=== PATIENT | male | born 1960 | race American Indian/Alaskan Native ===

== ENCOUNTER 2020-09-04 21:47 | Emergency (ER) | payer MEDICAID ==
[2020-09-04] MEDS ORDERED: Clindamycin HCl 150 MG Cap PO ONE (21:48)
[2020-09-04] MEDS ORDERED: Acetaminophen/HYDROcodone 325-10 MG Tab PO ONE (21:48)
[2020-09-04 23:24] LABS: ANION GAP 16.6 mEq/L (7-13); CHLORIDE,CL 90 mmol/L (98-107); SODIUM,NA 126 mmol/L (136-145)
--- NOTE | 2020-09-05 00:05 | EDM.PDOC ---
ED HPI GENERAL MEDICAL PROBLEM - General Chief Complaint: Skin Complaint Stated Complaint: RIGHT LEG INFLAMMED KNEE DOWN SWOLLEN Time Seen by Provider: 09/05/20 00:01 Source of Information: Reports: Patient History Limitations: Reports: No Limitations - History of Present Illness INITIAL COMMENTS - FREE TEXT/NARRATIVE: ONSET RIGHT LEG SWELLING AND REDNESS SINCE YESTERDAY. Right Lower Leg Pain Score (Numeric/FACES): 7 - Related Data Allergies Allergy/AdvReac Type Severity Reaction Status Date / Time tomato Allergy Airway Verified 09/04/20 22:51 Tightness Home Meds: Home Meds Nitroglycerin [Nitrostat] 1 tab .ROUTE ASDIRECTED PRN 09/28/13 [History] Aspirin [Aspirin EC] 81 mg PO DAILY 10/09/14 [History] Clopidogrel Bisulfate [Clopidogrel] 75 mg PO DAILY 10/09/14 [History] Pantoprazole [ProTONIX] 40 mg PO DAILY 10/09/14 [History] Simvastatin [Zocor] 40 mg PO DAILY 10/09/14 [History] amLODIPine Besylate [Amlodipine Besylate] 10 mg PO DAILY 10/09/14 [History] metFORMIN [Glucophage] 500 mg PO BID 10/09/14 [History] Losartan Potassium 50 mg PO BID 01/07/16 [History] Metoprolol Succinate 50 mg PO DAILY 01/07/16 [History] Past Medical History Cardiovascular History: Reports: High Cholesterol, Hypertension, [place] Gastrointestinal History: Reports: GERD Genitourinary History: Reports: Other (See Below) Other Genitourinary History: prostate removal Endocrine/Metabolic History: Reports: Diabetes, Type II Oncologic (Cancer) History: Reports: Prostate - Infectious Disease History Infectious Disease History: Reports: MRSA - Past Surgical History Cardiovascular Surgical History: Reports: Coronary Artery Stent Male Surgical History: Reports: Prostatectomy Oncologic Surgical History: Reports: Other (See Below) Other Oncologic Surgeries/Procedures: prostate removal Social & Family History - Family History Family Medical History: No Pertinent Family History - Tobacco Use Tobacco Use Status *Q: Never Tobacco User Second Hand Smoke Exposure: No - Caffeine Use Caffeine Use: Reports: Coffee - Recreational Drug Use Recreational Drug Use: No - Living Situation & Occupation Living situation: Reports: Occupation: Employed ED ROS GENERAL - Review of Systems Review Of Systems: Comprehensive ROS is negative, except as noted in HPI. ED EXAM, SKIN/RASH Exam: See Below Exam Limited By: No Limitations General Appearance: Alert, WD/WN, No Apparent Distress Ears: Hearing Grossly Normal Throat/Mouth: Normal Voice, No Airway Compromise Head: Atraumatic Neck: Non-Tender, Full Range of Motion Respiratory/Chest: No Respiratory Distress Cardiovascular: Regular Rate, Rhythm GI/Abdominal: Soft, Non-Tender (Male) Exam: Deferred Rectal (Males) Exam: Deferred Neurological: Other (right leg cellulitis, [place] wnl,) Psychiatric: Flat Affect Skin: Warm, Dry, Normal Color Location, Skin: Lower Extremity, Right Characteristics: Erythematous Associated features: Tenderness, Swelling, Inflammation Lymphatic: No Adenopathy Course - Vital Signs Last Recorded V/S: Last Vital Signs Temp 36.4 C 09/05/20 00:57 Pulse 88 09/05/20 00:57 Resp 19 09/05/20 00:57 BP 145/89 H 09/05/20 00:57 Pulse Ox 98 09/04/20 22:17 - Orders/Labs/Meds Orders: Active Orders 24 hr Category Date Time Status CULTURE BLOOD [BC] Stat Lab 09/04/20 22:57 Received Labs: Laboratory Tests 09/04/20 09/04/20 09/04/20 Range/Units 22:57 22:57 22:57 WBC 15.5 H (5.0-10.0) 10^3/uL RBC 4.58 L (4.6-6.2) 10^6/uL Hgb 13.9 L (14.0-18.0) g/dL Hct 39.7 L (40.0-54.0) % MCV 86.7 (80-100) fL MCH 30.3 (27.0-34.0) pg MCHC 35.0 (33.0-35.0) g/dL Plt Count 124 L (150-450) 10^3/uL Neut % (Auto) 84.9 H (42.2-75.2) % Lymph % (Auto) 7.3 L (20.5-50.1) % [place] % (Auto) 7.5 (2-8) % Eos % (Auto) 0.1 L (1.0-3.0) % Baso % (Auto) 0.2 (0.0-1.0) % Sodium 126 L (136-145) mmol/L Potassium 3.6 (3.5-5.1) mmol/L Chloride 90 L (98-107) mmol/L Carbon Dioxide 23 (21-32) mmol/L Anion Gap 16.6 H (7-13) mEq/L BUN 15 (7-18) mg/dL Creatinine 1.18 (0.70-1.30) mg/dL Est Cr Clr Drug Dosing 74.29 mL/min Estimated GFR (MDRD) > 60 BUN/Creatinine Ratio 12.7 (No establ ref range) Glucose 216 H (74-99) mg/dL Lactic Acid 2.1 H* (0.4-2.0) mmol/L Calcium 8.6 (8.5-10.1) mg/dL Total Bilirubin 1.0 (0.2-1.0) mg/dL AST 47 H (15-37) U/L ALT 42 (16-63) U/L Alkaline Phosphatase 49 (46-116) U/L Total Protein 7.8 (6.4-8.2) g/dL Albumin 2.8 L (3.4-5.0) g/dL Globulin 5.0 Albumin/Globulin Ratio 0.56 Meds: Medications Discontinued Medications Generic Name Dose Route Start Last Admin Trade Name Freq PRN Reason Stop Dose Admin Hydrocodone Bitart/Acetaminophen Confirm 09/05/20 00:16 09/05/20 00:44 [place] 325-10 Mg Administered 09/05/20 00:17 Not Given Dose 1 tab .ROUTE .STK-MED ONE Clindamycin HCl Confirm 09/05/20 00:16 09/05/20 00:43 Cleocin Administered 09/05/20 00:17 Not Given Dose 1,200 mg .ROUTE .STK-MED ONE Vancomycin HCl 1.5 gm/ Premix 300 mls @ 200 mls/hr 09/04/20 22:56 IV 09/05/20 00:25 ONETIME ONE Vancomycin HCl 1,500 mg/ 500 mls @ 333.333 mls/hr 09/04/20 23:07 09/04/20 23:23 Sodium Chloride IV 09/05/20 00:36 333.333 mls/hr ONETIME ONE Administration - Re-Assessments/Exams Free Text/Narrative Re-Assessment/Exam: 09/05/20 00:03 results discussed with pt. Departure - Departure Time of Disposition: 01:05 Disposition: Home, Self-Care 01 Condition: Fair Clinical Impression: Cellulitis Qualifiers: Site of cellulitis: extremity Site of cellulitis of extremity: lower extremity Laterality: right Qualified Code(s): L03.115 - Cellulitis of right lower limb - Discharge Information Instructions: Cellulitis, Adult, [id number] Forms: ED Department Discharge Additional Instructions: 1) elevate leg as much as possible 2) follow up at clinic 3) recheck if there is any change or concern rx given; clindamycin 300mg qid x 40 Sepsis Event Note (ED) - Evaluation Sepsis Screening Result: No Definite Risk - Focused Exam Vital Signs: Vital Signs Temp Pulse Resp BP Pulse Ox 09/05/20 00:57 36.4 C 88 19 145/89 H 09/04/20 22:17 35.8 C L 95 21 H 151/91 H 98 - My Orders Last 24 Hours: My Active Orders 09/04/20 22:57 CULTURE BLOOD [BC] Stat - Assessment/Plan Last 24 Hours: My Active Orders 09/04/20 22:57 CULTURE BLOOD [BC] Stat
[2020-09-05] MEDS: Clindamycin HCl 150 MG Cap ONE (00:43)
[2020-09-05] MEDS: Acetaminophen/HYDROcodone 325-10 MG Tab ONE (00:44)
[2020-09-05 00:58] VITALS: BP 145/89; PULSE 88
== END 2020-09-05 01:05 | disposition home or self-care (01) ==
LOC: DL.ED 21:47
DX: L03.115 Cellulitis of right lower limb (principal); I10 Essential (primary) hypertension; E78.00 Pure hypercholesterolemia, unspecified; I25.2 Old myocardial infarction; K21.9 Gastro-esophageal reflux disease without esophagitis; E11.9 Type 2 diabetes mellitus without complications; Z91.018 Allergy to other foods; Z79.82 Long term (current) use of aspirin; Z79.899 Other long term (current) drug therapy; Z79.02 Long term (current) use of antithrombotics/antiplatelets
CPT/HCPCS: 36415; 80053; 83605; 85025; 87040; 96365; 96366; 99283; A9270; J3370; J7040

== ENCOUNTER 2021-08-11 18:24 | Inpatient (IN) | payer MEDICAID ==
[2021-08-11 21:09] LABS: BASE EXCESS VENOUS -0.7 mmol/l ((-2)-(+3)); BICARBONATE,VENOUS 24 mmol/l (19-25); O2 DELIVERY DEVICE NASAL CANNULA; O2 SATURATION VENOUS 73.8 % (60-80); PCO2 VENOUS 39 mmHg (41-51); PO2 VENOUS 42 mmHg (35-42)
[2021-08-11 21:12] LABS: O2 FLOW RATE 8
--- NOTE | 2021-08-11 21:13 | EDM.PDOC ---
ED HPI GENERAL MEDICAL PROBLEM - General Chief Complaint: General Stated Complaint: NOT FEELING WELL Time Seen by Provider: 08/11/21 20:30 Source of Information: Reports: Patient, RN History Limitations: Reports: No Limitations - History of Present Illness INITIAL COMMENTS - FREE TEXT/NARRATIVE: ED with c/o not feeling well, muscle aches x 1 week. SOB with coughing. Denies SOB at rest, denied fever , no nausea or vomiting. Appetite poor. No change in taste or smell, denied smoking hx. Reported to RN no vaccine, , reported ot provider he was vaccinated but cant remember type of vaccine. Generalized Pain Score (Numeric/FACES): 10 - Related Data Allergies Allergy/AdvReac Type Severity Reaction Status Date / Time No Known Allergies Allergy Verified 08/11/21 20:27 Home Meds: Home Meds Nitroglycerin [Nitrostat] 1 tab .ROUTE ASDIRECTED PRN 09/28/13 [History] Aspirin [Aspirin EC] 81 mg PO DAILY 10/09/14 [History] Clopidogrel Bisulfate [Clopidogrel] 75 mg PO DAILY 10/09/14 [History] Pantoprazole [ProTONIX] 40 mg PO DAILY 10/09/14 [History] Simvastatin [Zocor] 40 mg PO DAILY 10/09/14 [History] amLODIPine Besylate [Amlodipine Besylate] 10 mg PO DAILY 10/09/14 [History] metFORMIN [Glucophage] 500 mg PO BID 10/09/14 [History] Losartan Potassium 50 mg PO BID 01/07/16 [History] Metoprolol Succinate 50 mg PO DAILY 01/07/16 [History] Past Medical History Cardiovascular History: Reports: High Cholesterol, Hypertension, [place] Gastrointestinal History: Reports: GERD Genitourinary History: Reports: Other (See Below) Other Genitourinary History: prostate removal Endocrine/Metabolic History: Reports: Diabetes, Type II Oncologic (Cancer) History: Reports: Prostate - Infectious Disease History Infectious Disease History: Reports: MRSA - Past Surgical History Cardiovascular Surgical History: Reports: Coronary Artery Stent Male Surgical History: Reports: Prostatectomy Oncologic Surgical History: Reports: Other (See Below) Other Oncologic Surgeries/Procedures: prostate removal Social & Family History - Family History Family Medical History: No Pertinent Family History - Tobacco Use Tobacco Use Status *Q: Never Tobacco User Second Hand Smoke Exposure: No - Caffeine Use Caffeine Use: Reports: Coffee - Recreational Drug Use Recreational Drug Use: No - Living Situation & Occupation Living situation: Reports: Occupation: Employed ED ROS GENERAL - Review of Systems Review Of Systems: Comprehensive ROS is negative, except as noted in HPI. ED EXAM, GENERAL - Physical Exam Exam: See Below Exam Limited By: No Limitations General Appearance: Alert, Mild Distress, Obese Eye Exam: Bilateral Eye: EOMI, PERRL Ears: Normal External Exam Nose: Normal Inspection Throat/Mouth: Normal Inspection Head: Atraumatic, Normocephalic Neck: Normal Inspection Respiratory/Chest: No Respiratory Distress, Lungs Clear, Decreased Breath Sounds Cardiovascular: Normal Peripheral Pulses, Regular Rate, Rhythm, Other (initial EKG trigemeny, Sinus rare ectopy with oxygen). No: No Edema (2+) GI/Abdominal: Normal Bowel Sounds, Soft Extremities: No: Pedal Edema (1-2plus) Neurological: Alert, Oriented, Normal Cognition, Normal Gait Psychiatric: Normal Affect, Flat Affect Skin Exam: Warm, Dry, Intact, Normal Color #1 Interpretation Rhythm: Other (sinus) [place]: Normal P-Wave: Present QRS: Normal Comparison: Change From Previous EKG EKG Interpretation Comments: sinus with ventricular trigeminy Course - Vital Signs Last Recorded V/S: Last Vital Signs Temp 98.8 F 08/12/21 04:00 Pulse 62 08/12/21 04:00 Resp 25 H 08/12/21 04:00 BP 116/72 08/12/21 04:00 Pulse Ox 90 L 08/12/21 04:00 - Orders/Labs/Meds Orders: Active Orders 24 hr Category Date Time Status Admission Diagnosis [ADT] Stat ADT 08/12/21 00:24 Ordered Admission Status [Patient Status] [ADT] Routine ADT 08/12/21 00:24 Active CULTURE BLOOD [BC] Stat Lab 08/11/21 20:45 Received CULTURE BLOOD [BC] Stat Lab 08/11/21 20:50 Received Blood Culture x2 Reflex Set [OM.PC] Stat Oth 08/11/21 20:29 Ordered Medication Orders Acetaminophen (Acetaminophen 325 Mg Tab) 650 mg PO Q4H PRN PRN Reason: Pain (Mild 1-3)/fever Amlodipine Besylate (Amlodipine 5 Mg Tab) 10 mg PO DAILY [facility] Aspirin (Aspirin 81 Mg Tab.Ec) 81 mg PO DAILY [facility] Clopidogrel Bisulfate (Clopidogrel 75 Mg Tab) 75 mg PO DAILY [facility] Dexamethasone (Dexamethasone 6 Mg Tablet) 6 mg PO DAILY [facility] Stop: 08/21/21 09:01 Dextrose/Water (50% Dextrose In Water 50 Ml Syringe) 50 ml IVPUSH Q15M PRN PRN Reason: Hypoglycemia Enoxaparin Sodium (Enoxaparin 40 Mg/0.4 Ml Syringe) 40 mg SUBCUT DAILY [facility] Glucagon (Glucagon,Human Recombinant 1 Mg Vial) 1 mg IM Q15M PRN PRN Reason: Hypoglycemia Remdesivir 100 mg/ Sodium (Chloride) 100 mls @ 100 mls/hr IV Q24H [facility] Stop: 08/16/21 01:59 Piperacillin Sod/Tazobactam (Sod 4.5 gm/ Sodium Chloride) 100 mls @ 200 mls/hr IV Q6HR [facility] Last Admin: 08/12/21 05:11 Dose: 200 mls/hr Documented by: HALEIGH Insulin Human Lispro (Insulin Lispro 100 Units/Ml 3 Ml Vial) 0 unit SUBCUT WITHMEALSANDBED [facility]; Protocol Losartan Potassium (Losartan 25 Mg Tab) 50 mg PO BID [facility] Metoprolol Succinate (Metoprolol Succinate 25 Mg Tab.Er) 50 mg PO DAILY [facility] Ondansetron HCl (Ondansetron 4 Mg/2 Ml Sdv) 4 mg IVPUSH Q4H PRN PRN Reason: Nausea/Vomiting Pantoprazole Sodium (Pantoprazole 40 Mg Tab.Cr) 40 mg PO DAILY [facility] Simvastatin (Simvastatin 40 Mg Tab) 40 mg PO DAILY [facility] Labs: Laboratory Tests 08/11/21 08/11/21 08/11/21 Range/Units 20:32 20:45 20:45 WBC 5.4 (5.0-10.0) 10^3/uL RBC 5.15 (4.6-6.2) 10^6/uL Hgb 15.2 (14.0-18.0) g/dL Hct 45.0 (40.0-54.0) % MCV 87.4 (80-100) fL MCH 29.5 (27.0-34.0) pg MCHC 33.8 (33.0-35.0) g/dL Plt Count 213 D (150-450) 10^3/uL Neut % (Auto) 81.8 H (42.2-75.2) % Lymph % (Auto) 10.3 L (20.5-50.1) % [place] % (Auto) 7.9 (2-8) % Eos % (Auto) 0.0 L (1.0-3.0) % Baso % (Auto) 0.0 (0.0-1.0) % D-Dimer, Quantitative 1120 H (0-400) ng/mL VBG pH (7.31-7.41) VBG pCO2 (41-51) mmHg VBG pO2 (35-42) mmHg VBG HCO3 (19-25) mmol/l VBG O2 Saturation (60-80) % VBG Base Excess ((-2)-(+3)) mmol/l O2 Delivery Device Oxygen Flow Rate Sodium (136-145) mmol/L Potassium (3.5-5.1) mmol/L Chloride (98-107) mmol/L Carbon Dioxide (21-32) mmol/L Anion Gap (7-13) mEq/L BUN (7-18) mg/dL Creatinine (0.70-1.30) mg/dL Est Cr Clr Drug Dosing mL/min Estimated GFR (MDRD) BUN/Creatinine Ratio (No establ ref range) Glucose (70-99) mg/dL Lactic Acid (0.4-2.0) mmol/L Calcium (8.5-10.1) mg/dL Magnesium (1.8-2.4) mg/dL Total Bilirubin (0.2-1.0) mg/dL AST (15-37) U/L ALT (16-63) U/L Alkaline Phosphatase (46-116) U/L Troponin I High Sens (<=76) pg/mL C-Reactive Protein (0.0-0.9) mg/dL B-Natriuretic Peptide (0-100) pg/ml Total Protein (6.4-8.2) g/dL Albumin (3.4-5.0) g/dL Globulin Albumin/Globulin Ratio Influenza Type A RNA Negative (NEGATIVE) Influenza Type B RNA Negative (NEGATIVE) SARS-CoV-2 RNA (JERE) Positive H (NEGATIVE) 08/11/21 08/11/21 08/11/21 Range/Units 20:45 20:45 20:50 WBC (5.0-10.0) 10^3/uL RBC (4.6-6.2) 10^6/uL Hgb (14.0-18.0) g/dL Hct (40.0-54.0) % MCV (80-100) fL MCH (27.0-34.0) pg MCHC (33.0-35.0) g/dL Plt Count (150-450) 10^3/uL Neut % (Auto) (42.2-75.2) % Lymph % (Auto) (20.5-50.1) % [place] % (Auto) (2-8) % Eos % (Auto) (1.0-3.0) % Baso % (Auto) (0.0-1.0) % D-Dimer, Quantitative (0-400) ng/mL VBG pH (7.31-7.41) VBG pCO2 (41-51) mmHg VBG pO2 (35-42) mmHg VBG HCO3 (19-25) mmol/l VBG O2 Saturation (60-80) % VBG Base Excess ((-2)-(+3)) mmol/l O2 Delivery Device Oxygen Flow Rate Sodium 130 L (136-145) mmol/L Potassium 4.8 (3.5-5.1) mmol/L Chloride 93 L (98-107) mmol/L Carbon Dioxide 26 (21-32) mmol/L Anion Gap 15.8 H (7-13) mEq/L BUN 21 H (7-18) mg/dL Creatinine 1.27 (0.70-1.30) mg/dL Est Cr Clr Drug Dosing 66.19 mL/min Estimated GFR (MDRD) 57 BUN/Creatinine Ratio 16.5 (No establ ref range) Glucose 204 H (70-99) mg/dL Lactic Acid 1.8 (0.4-2.0) mmol/L Calcium 9.1 (8.5-10.1) mg/dL Magnesium 2.1 (1.8-2.4) mg/dL Total Bilirubin 0.6 (0.2-1.0) mg/dL AST 114 H (15-37) U/L ALT 132 H (16-63) U/L Alkaline Phosphatase 46 (46-116) U/L Troponin I High Sens 16 (<=76) pg/mL C-Reactive Protein 16.3 H (0.0-0.9) mg/dL B-Natriuretic Peptide 91 (0-100) pg/ml Total Protein 8.3 H (6.4-8.2) g/dL Albumin 2.8 L (3.4-5.0) g/dL Globulin 5.5 Albumin/Globulin Ratio 0.51 Influenza Type A RNA (NEGATIVE) Influenza Type B RNA (NEGATIVE) SARS-CoV-2 RNA (JERE) (NEGATIVE) 08/11/21 Range/Units 21:05 WBC (5.0-10.0) 10^3/uL RBC (4.6-6.2) 10^6/uL Hgb (14.0-18.0) g/dL Hct (40.0-54.0) % MCV (80-100) fL MCH (27.0-34.0) pg MCHC (33.0-35.0) g/dL Plt Count (150-450) 10^3/uL Neut % (Auto) (42.2-75.2) % Lymph % (Auto) (20.5-50.1) % [place] % (Auto) (2-8) % Eos % (Auto) (1.0-3.0) % Baso % (Auto) (0.0-1.0) % D-Dimer, Quantitative (0-400) ng/mL VBG pH 7.40 (7.31-7.41) VBG pCO2 39 L (41-51) mmHg VBG pO2 42 (35-42) mmHg VBG HCO3 24 (19-25) mmol/l VBG O2 Saturation 73.8 (60-80) % VBG Base Excess -0.7 ((-2)-(+3)) mmol/l O2 Delivery Device Nasal cannula Oxygen Flow Rate 8 Sodium (136-145) mmol/L Potassium (3.5-5.1) mmol/L Chloride (98-107) mmol/L Carbon Dioxide (21-32) mmol/L Anion Gap (7-13) mEq/L BUN (7-18) mg/dL Creatinine (0.70-1.30) mg/dL Est Cr Clr Drug Dosing mL/min Estimated GFR (MDRD) BUN/Creatinine Ratio (No establ ref range) Glucose (70-99) mg/dL Lactic Acid (0.4-2.0) mmol/L Calcium (8.5-10.1) mg/dL Magnesium (1.8-2.4) mg/dL Total Bilirubin (0.2-1.0) mg/dL AST (15-37) U/L ALT (16-63) U/L Alkaline Phosphatase (46-116) U/L Troponin I High Sens (<=76) pg/mL C-Reactive Protein (0.0-0.9) mg/dL B-Natriuretic Peptide (0-100) pg/ml Total Protein (6.4-8.2) g/dL Albumin (3.4-5.0) g/dL Globulin Albumin/Globulin Ratio Influenza Type A RNA (NEGATIVE) Influenza Type B RNA (NEGATIVE) SARS-CoV-2 RNA (JERE) (NEGATIVE) Meds: Medications Generic Name Dose Route Start Last Admin Trade Name Freq PRN Reason Stop Dose Admin Acetaminophen 650 mg 08/12/21 00:35 Acetaminophen 325 Mg Tab PO Q4H PRN Pain (Mild 1-3)/fever Amlodipine Besylate 10 mg 08/12/21 09:00 Amlodipine 5 Mg Tab PO DAILY [facility] Aspirin 81 mg 08/12/21 09:00 Aspirin 81 Mg Tab.Ec PO DAILY [facility] Clopidogrel Bisulfate 75 mg 08/12/21 09:00 Clopidogrel 75 Mg Tab PO DAILY [facility] Dexamethasone 6 mg 08/12/21 09:00 Dexamethasone 6 Mg Tablet PO 08/21/21 09:01 DAILY [facility] Dextrose/Water 50 ml 08/12/21 00:40 50% Dextrose In Water 50 Ml Syringe IVPUSH Q15M PRN Hypoglycemia Enoxaparin Sodium 40 mg 08/12/21 09:00 Enoxaparin 40 Mg/0.4 Ml Syringe SUBCUT DAILY [facility] Glucagon 1 mg 08/12/21 00:40 Glucagon,Human Recombinant 1 Mg Vial IM Q15M PRN Hypoglycemia Remdesivir 100 mg/ Sodium 100 mls @ 100 mls/hr 08/13/21 01:00 Chloride IV 08/16/21 01:59 Q24H [facility] Piperacillin Sod/Tazobactam 100 mls @ 200 mls/hr 08/12/21 06:00 08/12/21 05:11 Sod 4.5 gm/ Sodium Chloride IV 200 mls/hr Q6HR [facility] Administration Insulin Human Lispro 0 unit 08/12/21 08:00 Insulin Lispro 100 Units/Ml 3 Ml Vial SUBCUT WITHMEALSANDBED [facility] Protocol Losartan Potassium 50 mg 08/12/21 09:00 Losartan 25 Mg Tab PO BID [facility] Metoprolol Succinate 50 mg 08/12/21 09:00 Metoprolol Succinate 25 Mg Tab.Er PO DAILY [facility] Ondansetron HCl 4 mg 08/12/21 00:35 Ondansetron 4 Mg/2 Ml Sdv IVPUSH Q4H PRN Nausea/Vomiting Pantoprazole Sodium 40 mg 08/12/21 09:00 Pantoprazole 40 Mg Tab.Cr PO DAILY [facility] Simvastatin 40 mg 08/12/21 09:00 Simvastatin 40 Mg Tab PO DAILY [facility] Discontinued Medications Generic Name Dose Route Start Last Admin Trade Name Freq PRN Reason Stop Dose Admin Dexamethasone 6 mg 08/11/21 21:33 08/11/21 21:41 Dexamethasone 4 Mg/Ml Sdv IVPUSH 08/11/21 21:34 6 mg ONETIME ONE Administration Azithromycin 500 mg/ Sodium 250 mls @ 250 mls/hr 08/11/21 23:21 08/12/21 00:17 Chloride IV 08/12/21 00:20 250 mls/hr ONETIME ONE Administration Remdesivir 200 mg/ Sodium 250 mls @ 250 mls/hr 08/12/21 00:38 08/12/21 02:03 Chloride IV 08/12/21 01:37 250 mls/hr ONETIME ONE Administration Iopamidol 100 ml 08/11/21 21:57 08/11/21 22:38 Iopamidol 755 Mg/Ml 100 Ml Bottle IVPUSH 08/11/21 21:58 94 ml ONETIME ONE Administration - Re-Assessments/Exams Free Text/Narrative Re-Assessment/Exam: 08/12/21 00:11 NAMRATA Ba , accepting patient for admission. Departure - Departure Time of Disposition: 00:10 Disposition: Admitted As Inpatient 65 Condition: Good Clinical Impression: Hypoxemia, Pneumonia due to COVID-19 virus, Hyperglycemia - Discharge Information *PRESCRIPTION DRUG MONITORING PROGRAM REVIEWED*: No *COPY OF PRESCRIPTION DRUG MONITORING REPORT IN PATIENT OSVALDO: No Sepsis Event Note (ED) - Focused Exam Vital Signs: Vital Signs Temp Pulse Resp BP Pulse Ox 08/11/21 20:16 99.1 F 83 20 135/60 84 L - My Orders Last 24 Hours: My Active Orders 08/11/21 20:29 Blood Culture x2 Reflex Set [OM.PC] Stat 08/11/21 20:45 CULTURE BLOOD [BC] Stat 08/11/21 20:50 CULTURE BLOOD [BC] Stat 08/12/21 00:24 Admission Diagnosis [ADT] Stat Admission Status [Patient Status] [ADT] Routine - Assessment/Plan Last 24 Hours: My Active Orders 08/11/21 20:29 Blood Culture x2 Reflex Set [OM.PC] Stat 08/11/21 20:45 CULTURE BLOOD [BC] Stat 08/11/21 20:50 CULTURE BLOOD [BC] Stat 08/12/21 00:24 Admission Diagnosis [ADT] Stat Admission Status [Patient Status] [ADT] Routine
[2021-08-11 21:25] LABS: CORONAVIRUS COVID-19 NAA POSITIVE (NEGATIVE)
[2021-08-11 21:32] LABS: ANION GAP 15.8 mEq/L (7-13)
[2021-08-11] MEDS ORDERED: Dexamethasone 4 MG/ML SDV IVPUSH ONE (21:33)
[2021-08-11] MEDS ORDERED: Iopamidol 755 Mg/ML 100 ML Bottle IVPUSH ONE (21:57)
--- NOTE | 2021-08-11 22:09 | CR ---
PROCEDURE INFORMATION: Exam: XR Chest Exam date and time: 08/11/2021 9:19 PM Age: 61 years old Clinical indication: Shortness of breath; Additional info: Hypoxia TECHNIQUE: Imaging protocol: XR of the chest. Views: 1 view. COMPARISON: CR Chest 1V Frontal 01/07/2016 4:36 AM FINDINGS: Lungs: Diffuse bilateral multifocal patchy pulmonary opacities. Pleural spaces: No definite pleural effusion. No pneumothorax. Heart/Mediastinum: Unremarkable. No cardiomegaly. Bones/joints: No evidence of acute osseous abnormality. IMPRESSION: Diffuse bilateral pulmonary opacities worrisome for infection.
--- NOTE | 2021-08-11 23:16 | CT ---
PROCEDURE INFORMATION: Exam: CT Chest With Contrast; Diagnostic Exam date and time: 08/11/2021 10:10 PM Age: 61 years old Clinical indication: Shortness of breath; Patient HX: Weight: 309 pounds, height: 72 inches; Additional info: Ddimer 100 covid positive, hypoxic TECHNIQUE: Imaging protocol: Diagnostic computed tomography of the chest with contrast. Radiation optimization: All CT scans at this facility use at least one of these dose optimization techniques: automated exposure control; mA and/or kV adjustment per patient size (includes targeted exams where dose is matched to clinical indication); or iterative reconstruction. Contrast material: ISOVUE 370; Contrast volume: 94 ml; Contrast route: INTRAVENOUS (IV); COMPARISON: CT Chest w Cont 02/04/2015 6:57 PM FINDINGS: Limitations: The examination is degraded by motion artifact. Lungs: Bilateral multifocal ground-glass pulmonary opacities, primarily peripheral. Pleural spaces: No pleural effusion or pneumothorax. Heart: Unremarkable. No cardiomegaly. No pericardial effusion. Pulmonary arteries: No pulmonary emboli to the level of the segmental arteries. Aorta: Unremarkable. No aortic aneurysm. Lymph nodes: Bilateral mildly enlarged hilar lymph nodes may be reactive. Bones/joints: Multiple old bilateral rib fractures. No acute osseous abnormality. Soft tissues: Bilateral gynecomastia. IMPRESSION: 1. No evidence of pulmonary emboli to the level of the segmental arteries. 2. Commonly reported imaging features of COVID-19 pneumonia are present. Other processes such as influenza pneumonia and organizing pneumonia, as can be seen with drug toxicity and connective tissue disease, can cause a similar imaging pattern. (Reference: Anibal) REFERENCES: Anibal Ma et al., [employer] Society of [place] Expert Consensus Statement on Reporting Chest CT Findings Related to COVID-19. Endorsed by the Society of [employer] Radiology, the [place] [employer], and [employer]. Published November 28, 2019.
[2021-08-11] MEDS ORDERED: Azithromycin 500 MG in Sodium Chloride 0.9% 250 ML IV ONE (23:21)
[2021-08-12] MEDS ORDERED: Ondansetron 4 MG/2 ML SDV IVPUSH PRN (00:35)
[2021-08-12] MEDS ORDERED: Acetaminophen 325 MG Tab PO PRN (00:35)
--- NOTE | 2021-08-12 00:35 | PCM.HP ---
H&P History of Present Illness - General Date of Service: 08/12/21 Admit Problem/Dx: Admission Diagnosis/Problem Admission Diagnosis/Problem Hypoxia Source of Information: Patient, EMS History Limitations: Reports: Respiratory Distress - History of Present Illness Initial Comments - Free Text/Narative: Patient is a 61-year-old male with a past medical history of type 2 diabetes mellitus, hypertension, CAD status post cardiac stents in 2000 who presented with dyspnea and fatigue. In the emergency department patient had oxyegn saturations in the upper 70s on room air. He was quickly transitioned to nasal cannula and to high flow nasal cannula with improvement in his oxygen saturations. Laboratory studies included a sodium of 130, potassium 4.8, creatinine 1.27, white count of 5.4, hemoglobin 15.2, platelet count 213, AST 114, ALT 132, CRP 16.3, lactate 1.8, D-dimer 1120, troponin was normal. Chest x-ray showed bilateral infiltrates. COVID-19 test was positive. CTA was obtained which showed no evidence of pulmonary embolism but did show concerning findings for bilateral diffuse infiltrates concerning for COVID-19 pneumonia. Upon my discussion with patient states that he has been feeling more short of breath and fatigue for the last 10 days. States that it i s slowly worsened to the point where he was incredibly fatigued and was unable to do much of any activity without feeling short of breath. States he had noticed some fevers and chills. States he had noticed some mild left lower quadrant abdominal discomfort but states this is mild and has been slightly improving her last several days. Had a prolonged discussion with patient given the severity of his COVID-19 pneumonia diagnosis. Patient agreed to treatment with remdesivir and steroids. He stated that he would not want to be on a ventilator and he would not want to be "kept alive with any machines ". Patient stated that she talk to his son if he has any worsening confusion and is unable to make decisions. Generalized Pain Score (Numeric/FACES): 10 - Related Data Allergies/Adverse Reactions: Allergies Allergy/AdvReac Type Severity Reaction Status Date / Time No Known Allergies Allergy Verified 08/11/21 20:27 Home Medications: Home Meds Nitroglycerin [Nitrostat] 1 tab .ROUTE ASDIRECTED PRN 09/28/13 [History] Aspirin [Aspirin EC] 81 mg PO DAILY 10/09/14 [History] Clopidogrel Bisulfate [Clopidogrel] 75 mg PO DAILY 10/09/14 [History] Pantoprazole [ProTONIX] 40 mg PO DAILY 10/09/14 [History] Simvastatin [Zocor] 40 mg PO DAILY 10/09/14 [History] amLODIPine Besylate [Amlodipine Besylate] 10 mg PO DAILY 10/09/14 [History] metFORMIN [Glucophage] 500 mg PO BID 10/09/14 [History] Losartan Potassium 50 mg PO BID 01/07/16 [History] Metoprolol Succinate 50 mg PO DAILY 01/07/16 [History] Past Medical History Cardiovascular History: Reports: High Cholesterol, Hypertension, PA Gastrointestinal History: Reports: GERD Genitourinary History: Reports: Other (See Below) Other Genitourinary History: prostate removal Endocrine/Metabolic History: Reports: Diabetes, Type II Oncologic (Cancer) History: Reports: Prostate - Infectious Disease History Infectious Disease History: Reports: MRSA - Past Surgical History Cardiovascular Surgical History: Reports: Coronary Artery Stent Male Surgical History: Reports: Prostatectomy Oncologic Surgical History: Reports: Other (See Below) Other Oncologic Surgeries/Procedures: prostate removal Social & Family History - Family History Family Medical History: No Pertinent Family History - Tobacco Use Tobacco Use Status *Q: Never Tobacco User Second Hand Smoke Exposure: No - Caffeine Use Caffeine Use: Reports: Coffee - Recreational Drug Use Recreational Drug Use: No - Living Situation & Occupation Living situation: Reports: Occupation: Employed H&P Review of Systems - Review of Systems: Review Of Systems: Comprehensive ROS is negative, except as noted in HPI. Exam - Exam Exam: See Below - Vital Signs Vital Signs: Last Vital Signs Temp 99.1 F 08/11/21 20:16 Pulse 83 08/11/21 20:16 Resp 20 08/11/21 20:16 BP 135/60 08/11/21 20:16 Pulse Ox 84 L 08/11/21 20:16 Weight: 309 lb 4 oz - Exam Quality Assessment: Supplemental Oxygen General: Alert, Moderate Distress (Obese male in moderate respiratory distress) HEENT: Conjunctiva Clear, EACs Clear Neck: Supple, Trachea Midline Lungs: Decreased Breath Sounds (Crackles noted in bilateral upper and lower lung aleman, rhonchi noted -significant respiratory distress) Cardiovascular: Regular Rate, Regular Rhythm GI/Abdominal Exam: Normal Bowel Sounds, Soft Back Exam: Normal Inspection Extremities: Normal Inspection (Findings of chronic venous stasis noted on bilateral lower extremities) Peripheral Pulses: 2+: Radial (L), Radial (R) Skin: Warm, Dry Neurological: Cranial Nerves Intact Neuro Extensive - Mental Status: Alert (Initially was orientated to person and place but not date) - Patient Data Lab Results Last 24 hrs: Laboratory Results - last 24 hr 08/11/21 08/11/21 08/11/21 Range/Units 20:32 20:45 20:45 WBC 5.4 (5.0-10.0) 10^3/uL RBC 5.15 (4.6-6.2) 10^6/uL Hgb 15.2 (14.0-18.0) g/dL Hct 45.0 (40.0-54.0) % MCV 87.4 (80-100) fL MCH 29.5 (27.0-34.0) pg MCHC 33.8 (33.0-35.0) g/dL Plt Count 213 D (150-450) 10^3/uL Neut % (Auto) 81.8 H (42.2-75.2) % Lymph % (Auto) 10.3 L (20.5-50.1) % [place] % (Auto) 7.9 (2-8) % Eos % (Auto) 0.0 L (1.0-3.0) % Baso % (Auto) 0.0 (0.0-1.0) % D-Dimer, Quantitative 1120 H (0-400) ng/mL VBG pH (7.31-7.41) VBG pCO2 (41-51) mmHg VBG pO2 (35-42) mmHg VBG HCO3 (19-25) mmol/l VBG O2 Saturation (60-80) % VBG Base Excess ((-2)-(+3)) mmol/l O2 Delivery Device Oxygen Flow Rate Sodium (136-145) mmol/L Potassium (3.5-5.1) mmol/L Chloride (98-107) mmol/L Carbon Dioxide (21-32) mmol/L Anion Gap (7-13) mEq/L BUN (7-18) mg/dL Creatinine (0.70-1.30) mg/dL Est Cr Clr Drug Dosing mL/min Estimated GFR (MDRD) BUN/Creatinine Ratio (No establ ref range) Glucose (70-99) mg/dL Lactic Acid (0.4-2.0) mmol/L Calcium (8.5-10.1) mg/dL Magnesium (1.8-2.4) mg/dL Total Bilirubin (0.2-1.0) mg/dL AST (15-37) U/L ALT (16-63) U/L Alkaline Phosphatase (46-116) U/L Troponin I High Sens (<=76) pg/mL C-Reactive Protein (0.0-0.9) mg/dL B-Natriuretic Peptide (0-100) pg/ml Total Protein (6.4-8.2) g/dL Albumin (3.4-5.0) g/dL Globulin Albumin/Globulin Ratio Influenza Type A RNA Negative (NEGATIVE) Influenza Type B RNA Negative (NEGATIVE) SARS-CoV-2 RNA (JERE) Positive H (NEGATIVE) 08/11/21 08/11/21 08/11/21 Range/Units 20:45 20:45 20:50 WBC (5.0-10.0) 10^3/uL RBC (4.6-6.2) 10^6/uL Hgb (14.0-18.0) g/dL Hct (40.0-54.0) % MCV (80-100) fL MCH (27.0-34.0) pg MCHC (33.0-35.0) g/dL Plt Count (150-450) 10^3/uL Neut % (Auto) (42.2-75.2) % Lymph % (Auto) (20.5-50.1) % [place] % (Auto) (2-8) % Eos % (Auto) (1.0-3.0) % Baso % (Auto) (0.0-1.0) % D-Dimer, Quantitative (0-400) ng/mL VBG pH (7.31-7.41) VBG pCO2 (41-51) mmHg VBG pO2 (35-42) mmHg VBG HCO3 (19-25) mmol/l VBG O2 Saturation (60-80) % VBG Base Excess ((-2)-(+3)) mmol/l O2 Delivery Device Oxygen Flow Rate Sodium 130 L (136-145) mmol/L Potassium 4.8 (3.5-5.1) mmol/L Chloride 93 L (98-107) mmol/L Carbon Dioxide 26 (21-32) mmol/L Anion Gap 15.8 H (7-13) mEq/L BUN 21 H (7-18) mg/dL Creatinine 1.27 (0.70-1.30) mg/dL Est Cr Clr Drug Dosing 66.19 mL/min Estimated GFR (MDRD) 57 BUN/Creatinine Ratio 16.5 (No establ ref range) Glucose 204 H (70-99) mg/dL Lactic Acid 1.8 (0.4-2.0) mmol/L Calcium 9.1 (8.5-10.1) mg/dL Magnesium 2.1 (1.8-2.4) mg/dL Total Bilirubin 0.6 (0.2-1.0) mg/dL AST 114 H (15-37) U/L ALT 132 H (16-63) U/L Alkaline Phosphatase 46 (46-116) U/L Troponin I High Sens 16 (<=76) pg/mL C-Reactive Protein 16.3 H (0.0-0.9) mg/dL B-Natriuretic Peptide 91 (0-100) pg/ml Total Protein 8.3 H (6.4-8.2) g/dL Albumin 2.8 L (3.4-5.0) g/dL Globulin 5.5 Albumin/Globulin Ratio 0.51 Influenza Type A RNA (NEGATIVE) Influenza Type B RNA (NEGATIVE) SARS-CoV-2 RNA (JERE) (NEGATIVE) 08/11/21 Range/Units 21:05 WBC (5.0-10.0) 10^3/uL RBC (4.6-6.2) 10^6/uL Hgb (14.0-18.0) g/dL Hct (40.0-54.0) % MCV (80-100) fL MCH (27.0-34.0) pg MCHC (33.0-35.0) g/dL Plt Count (150-450) 10^3/uL Neut % (Auto) (42.2-75.2) % Lymph % (Auto) (20.5-50.1) % [place] % (Auto) (2-8) % Eos % (Auto) (1.0-3.0) % Baso % (Auto) (0.0-1.0) % D-Dimer, Quantitative (0-400) ng/mL VBG pH 7.40 (7.31-7.41) VBG pCO2 39 L (41-51) mmHg VBG pO2 42 (35-42) mmHg VBG HCO3 24 (19-25) mmol/l VBG O2 Saturation 73.8 (60-80) % VBG Base Excess -0.7 ((-2)-(+3)) mmol/l O2 Delivery Device Nasal cannula Oxygen Flow Rate 8 Sodium (136-145) mmol/L Potassium (3.5-5.1) mmol/L Chloride (98-107) mmol/L Carbon Dioxide (21-32) mmol/L Anion Gap (7-13) mEq/L BUN (7-18) mg/dL Creatinine (0.70-1.30) mg/dL Est Cr Clr Drug Dosing mL/min Estimated GFR (MDRD) BUN/Creatinine Ratio (No establ ref range) Glucose (70-99) mg/dL Lactic Acid (0.4-2.0) mmol/L Calcium (8.5-10.1) mg/dL Magnesium (1.8-2.4) mg/dL Total Bilirubin (0.2-1.0) mg/dL AST (15-37) U/L ALT (16-63) U/L Alkaline Phosphatase (46-116) U/L Troponin I High Sens (<=76) pg/mL C-Reactive Protein (0.0-0.9) mg/dL B-Natriuretic Peptide (0-100) pg/ml Total Protein (6.4-8.2) g/dL Albumin (3.4-5.0) g/dL Globulin Albumin/Globulin Ratio Influenza Type A RNA (NEGATIVE) Influenza Type B RNA (NEGATIVE) SARS-CoV-2 RNA (JERE) (NEGATIVE) Result Diagrams: 08/11/21 20:45 08/11/21 20:45 - Problem List (1) Acute respiratory failure with hypoxia SNOMED Code(s): 29986955, 582781071 ICD Code: J96.01 - ACUTE RESPIRATORY FAILURE WITH HYPOXIA Status: Acute Current Visit: Yes (2) Diabetes SNOMED Code(s): 87131237 ICD Code: E11.9 - TYPE 2 DIABETES MELLITUS WITHOUT COMPLICATIONS Status: Acute Current Visit: Yes (3) Community acquired pneumonia SNOMED Code(s): 962107287 ICD Code: J18.9 - PNEUMONIA, UNSPECIFIED ORGANISM Status: Acute Current Visit: No (4) Hyperglycemia SNOMED Code(s): 08141075 ICD Code: R73.9 - HYPERGLYCEMIA, UNSPECIFIED Status: Acute Current Visit: No (5) Pneumonia due to COVID-19 virus SNOMED Code(s): 242301652132728330 ICD Code: U07.1 - COVID-19; J12.82 - PNEUMONIA DUE TO CORONAVIRUS DISEASE 2019 Status: Acute Current Visit: No Problem List Initiated/Reviewed/Updated: Yes Orders Last 24hrs: Active Orders 24 hr Category Date Time Status Admission Diagnosis [ADT] Stat ADT 08/12/21 00:24 Ordered Admission Status [Patient Status] [ADT] Routine ADT 08/12/21 00:24 Active CULTURE BLOOD [BC] Stat Lab 08/11/21 20:45 Received CULTURE BLOOD [BC] Stat Lab 08/11/21 20:50 Received Blood Culture x2 Reflex Set [OM.PC] Stat Oth 08/11/21 20:29 Ordered Assessment/Plan Comment:: 61-year-old male with a history of CAD, type 2 diabetes, hypertension, obesity who presented with generalized weakness was found to be significantly hypoxic with oxygen saturations in the 70s on room air. COVID-19 testing was positive and chest x-ray and CT revealed bilateral infiltrates concerning for COVID-19 pneumonia. # Acute hypoxic respiratory failure secondary to COVID-19 pneumonia -Requiring significant oxygen via nasal cannula - continuous O2 monitoring -We will treat patient with remdesivir, close attention to his LFTs given mild transaminitis -Dexamethasone p.o. 6 mg for 10-day course, remdesivir per protocol -Frequent laboratory monitoring per protocol -Albuterol inhaler, self proning as tolerated -We will add on Zosyn for possible secondary bacterial infection, blood cultures in process -Had a prolonged discussion with patient and he maintains a DNR/DNI status # Left lower abdominal pain -No concerning findings on physical exam - patient describes mild abdominal pain stable to improving over last several days - no change in BM, melena or diarrh ea -patient did have mild transaminitis but no right upper quadrant pain -we will continue to monitor # CADcontinue Plavix, aspirin, metoprolol succinate, simvastatin # Hypertensioncontinue losartan, amlodipine # Type 2 diabetes mellitushold Metformin, medium no sliding-scale insulin Fluidsnone Electrolyteswithin normal limits Dietn.p.o. for now given respiratory status DVT prophylaxisBID Lovenox GI prophylaxis-PPI
[2021-08-12] MEDS ORDERED: REMDESIVIR 200 MG in Sodium Chloride 0.9% 250 ML IV ONE (00:38)
[2021-08-12] MEDS ORDERED: Glucagon,Human Recombinant 1 MG Vial IM PRN (00:40)
[2021-08-12] MEDS ORDERED: 50% Dextrose in Water 50 ML Syringe IVPUSH PRN (00:40)
[2021-08-12] MEDS: Piperacillin/Tazobactam 4.5 GM in Sodium Chloride 0.9% 100 ML IV SCH ×4 (05:11→23:58)
[2021-08-12 07:19] LABS: ANION GAP 16.6 mEq/L (7-13); CHLORIDE,CL 96 mmol/L (98-107); SODIUM,NA 130 mmol/L (136-145)
[2021-08-12] MEDS: Losartan 25 MG Tab PO SCH ×2 (08:37→22:27)
[2021-08-12] MEDS: Insulin Lispro 100 Units/ML 3 ML Vial SUBCUT SCH ×4 (08:38→22:27)
[2021-08-12] MEDS ORDERED: Clopidogrel 75 MG Tab PO SCH (09:00)
[2021-08-12] MEDS ORDERED: Pantoprazole 40 MG Tab.CR PO SCH (09:00)
[2021-08-12] MEDS ORDERED: Simvastatin 40 MG Tab PO SCH (09:00)
[2021-08-12] MEDS ORDERED: Metoprolol Succinate 25 MG Tab.ER PO SCH (09:00)
[2021-08-12] MEDS ORDERED: Enoxaparin 40 MG/0.4 ML Syringe SUBCUT SCH (09:00)
[2021-08-12] MEDS ORDERED: Dexamethasone 6 MG TABLET PO SCH (09:00)
[2021-08-12] MEDS ORDERED: Aspirin 81 MG Tab.EC PO SCH (09:00)
[2021-08-12] MEDS ORDERED: amLODIPine 5 MG Tab PO SCH (09:00)
[2021-08-12] MEDS ORDERED: Tocilizumab 800 MG in Sodium Chloride 0.9% 100 ML IV ONE (10:00)
--- NOTE | 2021-08-12 11:08 | PCM.PN ---
- General Info Date of Service: 08/12/21 Admission Dx/Problem (Free Text): Admission Diagnosis/Problem Admission Diagnosis/Problem Hypoxia Subjective Update: Patient states that his breathing is improved today. We had a prolonged discussion about goals of care and patient wishes to be full code. Patient recognizes that his odds of surviving intubation are decreased given his severe COVID-19 pneumonia. Patient denies any chest pains or pressures, abdominal pain, nausea or vomiting, diarrhea. Remainder view of systems is negative except listed above. - Patient Data Vitals - Most Recent: Last Vital Signs Temp 97.6 F 08/12/21 08:40 Pulse 74 08/12/21 08:40 Resp 20 08/12/21 08:40 BP 112/66 08/12/21 08:40 Pulse Ox 90 L 08/12/21 08:40 Weight - Most Recent: 312 lb 9.6 oz I&O - Last 24 Hours: Intake & Output 08/11/21 08/12/21 08/12/21 22:59 06:59 14:59 Intake Total 1012 520 Output Total 500 Balance 512 520 Lab Results Last 24 Hours: Laboratory Results - last 24 hr 08/11/21 08/11/21 08/11/21 Range/Units 20:32 20:45 20:45 WBC 5.4 (5.0-10.0) 10^3/uL RBC 5.15 (4.6-6.2) 10^6/uL Hgb 15.2 (14.0-18.0) g/dL Hct 45.0 (40.0-54.0) % MCV 87.4 (80-100) fL MCH 29.5 (27.0-34.0) pg MCHC 33.8 (33.0-35.0) g/dL Plt Count 213 D (150-450) 10^3/uL Neut % (Auto) 81.8 H (42.2-75.2) % Lymph % (Auto) 10.3 L (20.5-50.1) % Bay % (Auto) 7.9 (2-8) % Eos % (Auto) 0.0 L (1.0-3.0) % Baso % (Auto) 0.0 (0.0-1.0) % D-Dimer, Quantitative 1120 H (0-400) ng/mL VBG pH (7.31-7.41) VBG pCO2 (41-51) mmHg VBG pO2 (35-42) mmHg VBG HCO3 (19-25) mmol/l VBG O2 Saturation (60-80) % VBG Base Excess ((-2)-(+3)) mmol/l O2 Delivery Device Oxygen Flow Rate Sodium (136-145) mmol/L Potassium (3.5-5.1) mmol/L Chloride (98-107) mmol/L Carbon Dioxide (21-32) mmol/L Anion Gap (7-13) mEq/L BUN (7-18) mg/dL Creatinine (0.70-1.30) mg/dL Est Cr Clr Drug Dosing mL/min Estimated GFR (MDRD) BUN/Creatinine Ratio (No establ ref range) Glucose (70-99) mg/dL POC Glucose (70-99) mg/dL Lactic Acid (0.4-2.0) mmol/L Calcium (8.5-10.1) mg/dL Magnesium (1.8-2.4) mg/dL Total Bilirubin (0.2-1.0) mg/dL AST (15-37) U/L ALT (16-63) U/L Alkaline Phosphatase (46-116) U/L Troponin I High Sens (<=76) pg/mL C-Reactive Protein (0.0-0.9) mg/dL B-Natriuretic Peptide (0-100) pg/ml Total Protein (6.4-8.2) g/dL Albumin (3.4-5.0) g/dL Globulin Albumin/Globulin Ratio Influenza Type A RNA Negative (NEGATIVE) Influenza Type B RNA Negative (NEGATIVE) SARS-CoV-2 RNA (JERE) Positive H (NEGATIVE) 08/11/21 08/11/21 08/11/21 Range/Units 20:45 20:45 20:50 WBC (5.0-10.0) 10^3/uL RBC (4.6-6.2) 10^6/uL Hgb (14.0-18.0) g/dL Hct (40.0-54.0) % MCV (80-100) fL MCH (27.0-34.0) pg MCHC (33.0-35.0) g/dL Plt Count (150-450) 10^3/uL Neut % (Auto) (42.2-75.2) % Lymph % (Auto) (20.5-50.1) % Bay % (Auto) (2-8) % Eos % (Auto) (1.0-3.0) % Baso % (Auto) (0.0-1.0) % D-Dimer, Quantitative (0-400) ng/mL VBG pH (7.31-7.41) VBG pCO2 (41-51) mmHg VBG pO2 (35-42) mmHg VBG HCO3 (19-25) mmol/l VBG O2 Saturation (60-80) % VBG Base Excess ((-2)-(+3)) mmol/l O2 Delivery Device Oxygen Flow Rate Sodium 130 L (136-145) mmol/L Potassium 4.8 (3.5-5.1) mmol/L Chloride 93 L (98-107) mmol/L Carbon Dioxide 26 (21-32) mmol/L Anion Gap 15.8 H (7-13) mEq/L BUN 21 H (7-18) mg/dL Creatinine 1.27 (0.70-1.30) mg/dL Est Cr Clr Drug Dosing 66.19 mL/min Estimated GFR (MDRD) 57 BUN/Creatinine Ratio 16.5 (No establ ref range) Glucose 204 H (70-99) mg/dL POC Glucose (70-99) mg/dL Lactic Acid 1.8 (0.4-2.0) mmol/L Calcium 9.1 (8.5-10.1) mg/dL Magnesium 2.1 (1.8-2.4) mg/dL Total Bilirubin 0.6 (0.2-1.0) mg/dL AST 114 H (15-37) U/L ALT 132 H (16-63) U/L Alkaline Phosphatase 46 (46-116) U/L Troponin I High Sens 16 (<=76) pg/mL C-Reactive Protein 16.3 H (0.0-0.9) mg/dL B-Natriuretic Peptide 91 (0-100) pg/ml Total Protein 8.3 H (6.4-8.2) g/dL Albumin 2.8 L (3.4-5.0) g/dL Globulin 5.5 Albumin/Globulin Ratio 0.51 Influenza Type A RNA (NEGATIVE) Influenza Type B RNA (NEGATIVE) SARS-CoV-2 RNA (JERE) (NEGATIVE) 08/11/21 08/12/21 08/12/21 Range/Units 21:05 06:10 08:15 WBC (5.0-10.0) 10^3/uL RBC (4.6-6.2) 10^6/uL Hgb (14.0-18.0) g/dL Hct (40.0-54.0) % MCV (80-100) fL MCH (27.0-34.0) pg MCHC (33.0-35.0) g/dL Plt Count (150-450) 10^3/uL Neut % (Auto) (42.2-75.2) % Lymph % (Auto) (20.5-50.1) % Bay % (Auto) (2-8) % Eos % (Auto) (1.0-3.0) % Baso % (Auto) (0.0-1.0) % D-Dimer, Quantitative (0-400) ng/mL VBG pH 7.40 (7.31-7.41) VBG pCO2 39 L (41-51) mmHg VBG pO2 42 (35-42) mmHg VBG HCO3 24 (19-25) mmol/l VBG O2 Saturation 73.8 (60-80) % VBG Base Excess -0.7 ((-2)-(+3)) mmol/l O2 Delivery Device Nasal cannula Oxygen Flow Rate 8 Sodium 130 L (136-145) mmol/L Potassium 4.6 (3.5-5.1) mmol/L Chloride 96 L (98-107) mmol/L Carbon Dioxide 22 (21-32) mmol/L Anion Gap 16.6 H (7-13) mEq/L BUN 21 H (7-18) mg/dL Creatinine 1.12 (0.70-1.30) mg/dL Est Cr Clr Drug Dosing 75.06 mL/min Estimated GFR (MDRD) > 60 BUN/Creatinine Ratio 18.8 (No establ ref range) Glucose 238 H (70-99) mg/dL POC Glucose 222 H (70-99) mg/dL Lactic Acid (0.4-2.0) mmol/L Calcium 8.5 (8.5-10.1) mg/dL Magnesium (1.8-2.4) mg/dL Total Bilirubin 0.7 (0.2-1.0) mg/dL AST 86 H (15-37) U/L ALT 117 H (16-63) U/L Alkaline Phosphatase 42 L (46-116) U/L Troponin I High Sens (<=76) pg/mL C-Reactive Protein (0.0-0.9) mg/dL B-Natriuretic Peptide (0-100) pg/ml Total Protein 7.7 (6.4-8.2) g/dL Albumin 2.5 L (3.4-5.0) g/dL Globulin 5.2 Albumin/Globulin Ratio 0.48 Influenza Type A RNA (NEGATIVE) Influenza Type B RNA (NEGATIVE) SARS-CoV-2 RNA (JERE) (NEGATIVE) Med Orders - Current: Current Medications Acetaminophen (Acetaminophen 325 Mg Tab) 650 mg PO Q4H PRN PRN Reason: Pain (Mild 1-3)/fever Amlodipine Besylate (Amlodipine 5 Mg Tab) 10 mg PO DAILY [facility] Last Admin: 08/12/21 08:35 Dose: 10 mg Documented by: Aspirin (Aspirin 81 Mg Tab.Ec) 81 mg PO DAILY [facility] Last Admin: 08/12/21 08:36 Dose: 81 mg Documented by: Clopidogrel Bisulfate (Clopidogrel 75 Mg Tab) 75 mg PO DAILY [facility] Last Admin: 08/12/21 08:38 Dose: 75 mg Documented by: Dexamethasone (Dexamethasone 6 Mg Tablet) 6 mg PO DAILY [facility] Stop: 08/21/21 09:01 Last Admin: 08/12/21 08:35 Dose: 6 mg Documented by: Dextrose/Water (50% Dextrose In Water 50 Ml Syringe) 50 ml IVPUSH Q15M PRN PRN Reason: Hypoglycemia Enoxaparin Sodium (Enoxaparin 40 Mg/0.4 Ml Syringe) 40 mg SUBCUT DAILY [facility] Last Admin: 08/12/21 08:38 Dose: 40 mg Documented by: Glucagon (Glucagon,Human Recombinant 1 Mg Vial) 1 mg IM Q15M PRN PRN Reason: Hypoglycemia Remdesivir 100 mg/ Sodium (Chloride) 100 mls @ 100 mls/hr IV Q24H [facility] Stop: 08/16/21 01:59 Piperacillin Sod/Tazobactam (Sod 4.5 gm/ Sodium Chloride) 100 mls @ 200 mls/hr IV Q6HR [facility] Last Admin: 08/12/21 05:11 Dose: 200 mls/hr Documented by: Insulin Human Lispro (Insulin Lispro 100 Units/Ml 3 Ml Vial) 0 unit SUBCUT WITHMEALSANDBED [facility]; Protocol Last Admin: 08/12/21 08:38 Dose: 4 units Documented by: Losartan Potassium (Losartan 25 Mg Tab) 50 mg PO BID [facility] Last Admin: 08/12/21 08:37 Dose: 50 mg Documented by: Metoprolol Succinate (Metoprolol Succinate 25 Mg Tab.Er) 50 mg PO DAILY [facility] Last Admin: 08/12/21 08:37 Dose: 50 mg Documented by: Ondansetron HCl (Ondansetron 4 Mg/2 Ml Sdv) 4 mg IVPUSH Q4H PRN PRN Reason: Nausea/Vomiting Pantoprazole Sodium (Pantoprazole 40 Mg Tab.Cr) 40 mg PO DAILY [facility] Last Admin: 08/12/21 08:37 Dose: 40 mg Documented by: Simvastatin (Simvastatin 40 Mg Tab) 40 mg PO DAILY [facility] Last Admin: 08/12/21 08:36 Dose: 40 mg Documented by: Discontinued Medications Dexamethasone (Dexamethasone 4 Mg/Ml Sdv) 6 mg IVPUSH ONETIME ONE Stop: 08/11/21 21:34 Last Admin: 08/11/21 21:41 Dose: 6 mg Documented by: Azithromycin 500 mg/ Sodium (Chloride) 250 mls @ 250 mls/hr IV ONETIME ONE Stop: 08/12/21 00:20 Last Admin: 08/12/21 00:17 Dose: 250 mls/hr Documented by: Remdesivir 200 mg/ Sodium (Chloride) 250 mls @ 250 mls/hr IV ONETIME ONE Stop: 08/12/21 01:37 Last Admin: 08/12/21 02:03 Dose: 250 mls/hr Documented by: Tocilizumab 800 mg/ Sodium (Chloride) 140 mls @ 140 mls/hr IV ONETIME ONE Stop: 08/12/21 10:59 Iopamidol (Iopamidol 755 Mg/Ml 100 Ml Bottle) 100 ml IVPUSH ONETIME ONE Stop: 08/11/21 21:58 Last Admin: 08/11/21 22:38 Dose: 94 ml Documented by: - Exam General: Alert, Oriented HEENT: Pupils Equal Neck: Supple Lungs: Decreased Breath Sounds (Significant index Tory wheezing and crackles noted in all lung aleman), Other (Moderate respiratory distress on high flow nasal cannula) Cardiovascular: Regular Rate, Regular Rhythm GI/Abdominal Exam: Normal Bowel Sounds Back Exam: Normal Inspection Extremities: Normal Inspection Peripheral Pulses: 2+: Radial (L), Radial (R) Skin: Warm, Dry Neurological: No New Focal Deficit Psy/Mental Status: Alert, Normal Affect - Patient Data Lab Results Last 24 hrs: Laboratory Results - last 24 hr 08/11/21 08/11/21 08/11/21 Range/Units 20:32 20:45 20:45 WBC 5.4 (5.0-10.0) 10^3/uL RBC 5.15 (4.6-6.2) 10^6/uL Hgb 15.2 (14.0-18.0) g/dL Hct 45.0 (40.0-54.0) % MCV 87.4 (80-100) fL MCH 29.5 (27.0-34.0) pg MCHC 33.8 (33.0-35.0) g/dL Plt Count 213 D (150-450) 10^3/uL Neut % (Auto) 81.8 H (42.2-75.2) % Lymph % (Auto) 10.3 L (20.5-50.1) % Bay % (Auto) 7.9 (2-8) % Eos % (Auto) 0.0 L (1.0-3.0) % Baso % (Auto) 0.0 (0.0-1.0) % D-Dimer, Quantitative 1120 H (0-400) ng/mL VBG pH (7.31-7.41) VBG pCO2 (41-51) mmHg VBG pO2 (35-42) mmHg VBG HCO3 (19-25) mmol/l VBG O2 Saturation (60-80) % VBG Base Excess ((-2)-(+3)) mmol/l O2 Delivery Device Oxygen Flow Rate Sodium (136-145) mmol/L Potassium (3.5-5.1) mmol/L Chloride (98-107) mmol/L Carbon Dioxide (21-32) mmol/L Anion Gap (7-13) mEq/L BUN (7-18) mg/dL Creatinine (0.70-1.30) mg/dL Est Cr Clr Drug Dosing mL/min Estimated GFR (MDRD) BUN/Creatinine Ratio (No establ ref range) Glucose (70-99) mg/dL POC Glucose (70-99) mg/dL Lactic Acid (0.4-2.0) mmol/L Calcium (8.5-10.1) mg/dL Magnesium (1.8-2.4) mg/dL Total Bilirubin (0.2-1.0) mg/dL AST (15-37) U/L ALT (16-63) U/L Alkaline Phosphatase (46-116) U/L Troponin I High Sens (<=76) pg/mL C-Reactive Protein (0.0-0.9) mg/dL B-Natriuretic Peptide (0-100) pg/ml Total Protein (6.4-8.2) g/dL Albumin (3.4-5.0) g/dL Globulin Albumin/Globulin Ratio Influenza Type A RNA Negative (NEGATIVE) Influenza Type B RNA Negative (NEGATIVE) SARS-CoV-2 RNA (JERE) Positive H (NEGATIVE) 08/11/21 08/11/21 08/11/21 Range/Units 20:45 20:45 20:50 WBC (5.0-10.0) 10^3/uL RBC (4.6-6.2) 10^6/uL Hgb (14.0-18.0) g/dL Hct (40.0-54.0) % MCV (80-100) fL MCH (27.0-34.0) pg MCHC (33.0-35.0) g/dL Plt Count (150-450) 10^3/uL Neut % (Auto) (42.2-75.2) % Lymph % (Auto) (20.5-50.1) % Bay % (Auto) (2-8) % Eos % (Auto) (1.0-3.0) % Baso % (Auto) (0.0-1.0) % D-Dimer, Quantitative (0-400) ng/mL VBG pH (7.31-7.41) VBG pCO2 (41-51) mmHg VBG pO2 (35-42) mmHg VBG HCO3 (19-25) mmol/l VBG O2 Saturation (60-80) % VBG Base Excess ((-2)-(+3)) mmol/l O2 Delivery Device Oxygen Flow Rate Sodium 130 L (136-145) mmol/L Potassium 4.8 (3.5-5.1) mmol/L Chloride 93 L (98-107) mmol/L Carbon Dioxide 26 (21-32) mmol/L Anion Gap 15.8 H (7-13) mEq/L BUN 21 H (7-18) mg/dL Creatinine 1.27 (0.70-1.30) mg/dL Est Cr Clr Drug Dosing 66.19 mL/min Estimated GFR (MDRD) 57 BUN/Creatinine Ratio 16.5 (No establ ref range) Glucose 204 H (70-99) mg/dL POC Glucose (70-99) mg/dL Lactic Acid 1.8 (0.4-2.0) mmol/L Calcium 9.1 (8.5-10.1) mg/dL Magnesium 2.1 (1.8-2.4) mg/dL Total Bilirubin 0.6 (0.2-1.0) mg/dL AST 114 H (15-37) U/L ALT 132 H (16-63) U/L Alkaline Phosphatase 46 (46-116) U/L Troponin I High Sens 16 (<=76) pg/mL C-Reactive Protein 16.3 H (0.0-0.9) mg/dL B-Natriuretic Peptide 91 (0-100) pg/ml Total Protein 8.3 H (6.4-8.2) g/dL Albumin 2.8 L (3.4-5.0) g/dL Globulin 5.5 Albumin/Globulin Ratio 0.51 Influenza Type A RNA (NEGATIVE) Influenza Type B RNA (NEGATIVE) SARS-CoV-2 RNA (JERE) (NEGATIVE) 08/11/21 08/12/21 08/12/21 Range/Units 21:05 06:10 08:15 WBC (5.0-10.0) 10^3/uL RBC (4.6-6.2) 10^6/uL Hgb (14.0-18.0) g/dL Hct (40.0-54.0) % MCV (80-100) fL MCH (27.0-34.0) pg MCHC (33.0-35.0) g/dL Plt Count (150-450) 10^3/uL Neut % (Auto) (42.2-75.2) % Lymph % (Auto) (20.5-50.1) % Bay % (Auto) (2-8) % Eos % (Auto) (1.0-3.0) % Baso % (Auto) (0.0-1.0) % D-Dimer, Quantitative (0-400) ng/mL VBG pH 7.40 (7.31-7.41) VBG pCO2 39 L (41-51) mmHg VBG pO2 42 (35-42) mmHg VBG HCO3 24 (19-25) mmol/l VBG O2 Saturation 73.8 (60-80) % VBG Base Excess -0.7 ((-2)-(+3)) mmol/l O2 Delivery Device Nasal cannula Oxygen Flow Rate 8 Sodium 130 L (136-145) mmol/L Potassium 4.6 (3.5-5.1) mmol/L Chloride 96 L (98-107) mmol/L Carbon Dioxide 22 (21-32) mmol/L Anion Gap 16.6 H (7-13) mEq/L BUN 21 H (7-18) mg/dL Creatinine 1.12 (0.70-1.30) mg/dL Est Cr Clr Drug Dosing 75.06 mL/min Estimated GFR (MDRD) > 60 BUN/Creatinine Ratio 18.8 (No establ ref range) Glucose 238 H (70-99) mg/dL POC Glucose 222 H (70-99) mg/dL Lactic Acid (0.4-2.0) mmol/L Calcium 8.5 (8.5-10.1) mg/dL Magnesium (1.8-2.4) mg/dL Total Bilirubin 0.7 (0.2-1.0) mg/dL AST 86 H (15-37) U/L ALT 117 H (16-63) U/L Alkaline Phosphatase 42 L (46-116) U/L Troponin I High Sens (<=76) pg/mL C-Reactive Protein (0.0-0.9) mg/dL B-Natriuretic Peptide (0-100) pg/ml Total Protein 7.7 (6.4-8.2) g/dL Albumin 2.5 L (3.4-5.0) g/dL Globulin 5.2 Albumin/Globulin Ratio 0.48 Influenza Type A RNA (NEGATIVE) Influenza Type B RNA (NEGATIVE) SARS-CoV-2 RNA ([facility]ERE) (NEGATIVE) Result Diagrams: 08/11/21 20:45 08/12/21 06:10 Sepsis Event Note - Evaluation Sepsis Screening Result: Possible Sepsis Risk - Focused Exam Vital Signs: Vital Signs Temp Pulse Pulse Resp BP BP Pulse Ox 08/12/21 08:40 97.6 F 74 20 112/66 90 L 08/12/21 08:37 74 112/66 08/12/21 08:35 112/66 08/12/21 06:13 08/12/21 04:00 98.8 F 62 25 H 116/72 90 L 08/12/21 03:51 08/12/21 00:35 98.8 F 69 30 H 121/70 87 L Pulse Ox Pulse Ox Pulse Ox 08/12/21 08:40 08/12/21 08:37 08/12/21 08:35 08/12/21 06:13 94 L 08/12/21 04:00 08/12/21 03:51 90 L 08/12/21 00:35 91 L - Problem List & Annotations (1) Acute respiratory failure with hypoxia SNOMED Code(s): 61273451, 588362648 Code(s): J96.01 - ACUTE RESPIRATORY FAILURE WITH HYPOXIA Status: Acute Current Visit: Yes (2) Diabetes SNOMED Code(s): 67960114 Code(s): E11.9 - TYPE 2 DIABETES MELLITUS WITHOUT COMPLICATIONS Status: Acute Current Visit: Yes (3) Community acquired pneumonia SNOMED Code(s): 668962949 Code(s): J18.9 - PNEUMONIA, UNSPECIFIED ORGANISM Status: Acute Current Visit: No (4) Hyperglycemia SNOMED Code(s): 92188524 Code(s): R73.9 - HYPERGLYCEMIA, UNSPECIFIED Status: Acute Current Visit: No (5) Pneumonia due to COVID-19 virus SNOMED Code(s): 135580453682636257 Code(s): U07.1 - COVID-19; J12.82 - PNEUMONIA DUE TO CORONAVIRUS DISEASE 2019 Status: Acute Current Visit: No - Problem List Review Problem List Initiated/Reviewed/Updated: Yes - My Orders Last 24 Hours: My Active Orders 08/12/21 00:35 Oxygen Therapy [RC] PRN Up With Assistance [RC] ASDIRECTED VTE/DVT Education [RC] 08,20 Vital Signs [RC] 00,04,08,12,16,20 Acetaminophen [TylenoL] 650 mg PO Q4H PRN Ondansetron [Zofran] 4 mg IVPUSH Q4H PRN 08/12/21 00:38 Positioning, Patient [RC] ASDIRECTED RT Incentive Spirometry [RC] ASDIRECTED Isolation [COMM] Stat 08/12/21 00:40 Blood Glucose Check, Bedside [RC] WITHMEALSANDBED Dextrose 50% in Water 50 ml IVPUSH Q15M PRN Glucagon,Human Recombinant [GlucaGen] 1 mg IM Q15M PRN 08/12/21 01:01 Pulse Oximetry Continuous Monitoring [OM.PC] Routine 08/12/21 06:00 Piperacillin/Tazobactam [Zosyn] 4.5 gm Sodium Chloride 0.9% [Normal Saline AdvBag] 100 ml IV Q6HR 08/12/21 06:10 PROCALCITONIN [REF] Routine 08/12/21 Breakfast Carbohydrate Counting [Consistent Carbohydrate Diet] [DIET] 08/12/21 08:00 Insulin Lispro [HumaLOG] See Protocol SUBCUT WITHMEALSANDBED 08/12/21 09:00 Aspirin [Halfprin] 81 mg PO DAILY Clopidogrel [Plavix] 75 mg PO DAILY Enoxaparin [Lovenox] 40 mg SUBCUT DAILY Losartan [Cozaar] 50 mg PO BID Metoprolol Succinate [Toprol XL] 50 mg PO DAILY Pantoprazole [ProTONIX] 40 mg PO DAILY Simvastatin [Zocor] 40 mg PO DAILY amLODIPine [Norvasc] 10 mg PO DAILY dexAMETHasone 6 mg PO DAILY 08/12/21 09:28 Code Status [Resuscitation Status] Routine 08/13/21 01:00 Remdesivir 100 mg Sodium Chloride 0.9% [Normal Saline AdvBag] 100 ml IV Q24H 08/13/21 05:00 CBC WITH AUTO DIFF [HEME] DAILY HEPATIC FUNCTION PANEL,HFP [CHEM] DAILY - Plan Plan:: 61-year-old male with a history of CAD, type 2 diabetes, hypertension, obesity who presented with generalized weakness was found to be significantly hypoxic with oxygen saturations in the 70s on room air. COVID-19 testing was positive and chest x-ray and CT revealed bilateral infiltrates concerning for COVID-19 pneumonia. # Acute hypoxic respiratory failure secondary to COVID-19 pneumonia -Now requiring HFNC - continuous O2 monitoring -We will treat patient with remdesivir, close attention to his LFTs given mild transaminitis -Dexamethasone p.o. 6 mg for 10-day course, remdesivir per protocol - addition of Tocilizumab 8 mg/kg once given addition of HFNC support -Frequent laboratory monitoring per protocol -Albuterol inhaler, self proning as tolerated -We will add on Zosyn for possible secondary bacterial infection, blood cultures in process -Had a prolonged discussion with patient and he now maintains full code status # Left lower abdominal pain -No concerning findings on physical exam - patient describes mild abdominal pain stable to improving over last several days - no change in BM, melena or diarrhea - significantly improved today # Chronic medical problems: # CADcontinue Plavix, aspirin, metoprolol succinate, simvastatin # Hypertensioncontinue losartan, amlodipine # Type 2 diabetes mellitushold Metformin, medium dose sliding-scale insulin Fluidsnone Electrolyteswithin normal limits Dietcarb controlled diet DVT prophylaxisBID Lovenox GI prophylaxis-PPI
[2021-08-12] MEDS ORDERED: Water For Injection, Sterile 20 ML ONE (19:36)
[2021-08-13] MEDS: Sodium Chloride 0.9% 10 ML Syringe FLUSH PRN ×5 (00:54→05:56)
[2021-08-13] MEDS ORDERED: REMDESIVIR 100 MG in Sodium Chloride 0.9% 100 ML IV SCH (01:00)
[2021-08-13] MEDS: Piperacillin/Tazobactam 4.5 GM in Sodium Chloride 0.9% 100 ML IV SCH (05:56)
--- NOTE | 2021-08-13 06:11 | PCM.PN ---
- General Info Date of Service: 08/13/21 Subjective Update: This a.m. patient had worsening oxygen saturations and worsening dyspnea. Had prolonged discussion with patient about options including continuing with high flow nasal cannula and possibly transition to palliative care versus intubation and possible transfer. Discussed that patient has significant comorbidities and his chance of survival is low. Patient agreed with intubation. We will plan on intubation. - Patient Data Vitals - Most Recent: Last Vital Signs Temp 98 F 08/12/21 23:55 Pulse 56 L 08/12/21 23:55 Resp 20 08/12/21 23:55 BP 97/48 L 08/12/21 23:55 Pulse Ox 87 L 08/12/21 23:55 Weight - Most Recent: 312 lb 9.6 oz I&O - Last 24 Hours: Intake & Output 08/12/21 08/12/21 08/13/21 14:59 22:59 06:59 Intake Total 1020 740 200 Output Total 400 Balance 620 740 200 Lab Results Last 24 Hours: Laboratory Results - last 24 hr 08/12/21 08/12/21 08/12/21 Range/Units 06:10 08:15 12:21 Sodium 130 L (136-145) mmol/L Potassium 4.6 (3.5-5.1) mmol/L Chloride 96 L (98-107) mmol/L Carbon Dioxide 22 (21-32) mmol/L Anion Gap 16.6 H (7-13) mEq/L BUN 21 H (7-18) mg/dL Creatinine 1.12 (0.70-1.30) mg/dL Est Cr Clr Drug Dosing 75.06 mL/min Estimated GFR (MDRD) > 60 BUN/Creatinine Ratio 18.8 (No establ ref range) Glucose 238 H (70-99) mg/dL POC Glucose 222 H 213 H (70-99) mg/dL Calcium 8.5 (8.5-10.1) mg/dL Total Bilirubin 0.7 (0.2-1.0) mg/dL AST 86 H (15-37) U/L ALT 117 H (16-63) U/L Alkaline Phosphatase 42 L (46-116) U/L Total Protein 7.7 (6.4-8.2) g/dL Albumin 2.5 L (3.4-5.0) g/dL Globulin 5.2 Albumin/Globulin Ratio 0.48 08/12/21 08/12/21 Range/Units 16:32 20:33 Sodium (136-145) mmol/L Potassium (3.5-5.1) mmol/L Chloride (98-107) mmol/L Carbon Dioxide (21-32) mmol/L Anion Gap (7-13) mEq/L BUN (7-18) mg/dL Creatinine (0.70-1.30) mg/dL Est Cr Clr Drug Dosing mL/min Estimated GFR (MDRD) BUN/Creatinine Ratio (No establ ref range) Glucose (70-99) mg/dL POC Glucose 253 H 221 H (70-99) mg/dL Calcium (8.5-10.1) mg/dL Total Bilirubin (0.2-1.0) mg/dL AST (15-37) U/L ALT (16-63) U/L Alkaline Phosphatase (46-116) U/L Total Protein (6.4-8.2) g/dL Albumin (3.4-5.0) g/dL Globulin Albumin/Globulin Ratio [place] Results Last 24 Hours: Microbiology 08/11/21 20:50 Aerobic Blood Culture - Preliminary Blood - Arm, Right NO GROWTH AFTER 1 DAY Anaerobic Blood Culture - Preliminary NO GROWTH AFTER 1 DAY 08/11/21 20:45 Aerobic Blood Culture - Preliminary Blood - Arm, Left NO GROWTH AFTER 1 DAY Anaerobic Blood Culture - Preliminary NO GROWTH AFTER 1 DAY Med Orders - Current: Current Medications Acetaminophen (Acetaminophen 325 Mg Tab) 650 mg PO Q4H PRN PRN Reason: Pain (Mild 1-3)/fever Aspirin (Aspirin 81 Mg Tab.Ec) 81 mg PO DAILY [facility] Last Admin: 08/12/21 08:36 Dose: 81 mg Documented by: Clopidogrel Bisulfate (Clopidogrel 75 Mg Tab) 75 mg PO DAILY [facility] Last Admin: 08/12/21 08:38 Dose: 75 mg Documented by: Dexamethasone (Dexamethasone 6 Mg Tablet) 6 mg PO DAILY [facility] Stop: 08/21/21 09:01 Last Admin: 08/12/21 08:35 Dose: 6 mg Documented by: Dextrose/Water (50% Dextrose In Water 50 Ml Syringe) 50 ml IVPUSH Q15M PRN PRN Reason: Hypoglycemia Enoxaparin Sodium (Enoxaparin 40 Mg/0.4 Ml Syringe) 40 mg SUBCUT DAILY [facility] Last Admin: 08/12/21 08:38 Dose: 40 mg Documented by: Glucagon (Glucagon,Human Recombinant 1 Mg Vial) 1 mg IM Q15M PRN PRN Reason: Hypoglycemia Remdesivir 100 mg/ Sodium (Chloride) 100 mls @ 100 mls/hr IV Q24H [facility] Stop: 08/16/21 01:59 Last Infusion: 08/13/21 02:42 Dose: Infused Documented by: Piperacillin Sod/Tazobactam (Sod 4.5 gm/ Sodium Chloride) 100 mls @ 200 mls/hr IV Q6HR [facility] Last Admin: 08/13/21 05:56 Dose: 200 mls/hr Documented by: Insulin Human Lispro (Insulin Lispro 100 Units/Ml 3 Ml Vial) 0 unit SUBCUT WITHMEALSANDBED [facility]; Protocol Last Admin: 08/12/21 22:27 Dose: 4 units Documented by: Losartan Potassium (Losartan 25 Mg Tab) 50 mg PO BID [facility] Last Admin: 08/12/21 22:27 Dose: 50 mg Documented by: Metoprolol Succinate (Metoprolol Succinate 25 Mg Tab.Er) 50 mg PO DAILY [facility] Last Admin: 08/12/21 08:37 Dose: 50 mg Documented by: Ondansetron HCl (Ondansetron 4 Mg/2 Ml Sdv) 4 mg IVPUSH Q4H PRN PRN Reason: Nausea/Vomiting Pantoprazole Sodium (Pantoprazole 40 Mg Tab.Cr) 40 mg PO DAILY [facility] Last Admin: 08/12/21 08:37 Dose: 40 mg Documented by: Simvastatin (Simvastatin 40 Mg Tab) 40 mg PO DAILY [facility] Last Admin: 08/12/21 08:36 Dose: 40 mg Documented by: Sodium Chloride (Sodium Chloride 0.9% 10 Ml Syringe) 10 ml FLUSH ASDIRECTED PRN PRN Reason: IV Use Last Admin: 08/13/21 05:56 Dose: 10 ml Documented by: Discontinued Medications Amlodipine Besylate (Amlodipine 5 Mg Tab) 10 mg PO DAILY [facility] Last Admin: 08/12/21 08:35 Dose: 10 mg Documented by: Dexamethasone (Dexamethasone 4 Mg/Ml Sdv) 6 mg IVPUSH ONETIME ONE Stop: 08/11/21 21:34 Last Admin: 08/11/21 21:41 Dose: 6 mg Documented by: Azithromycin 500 mg/ Sodium (Chloride) 250 mls @ 250 mls/hr IV ONETIME ONE Stop: 08/12/21 00:20 Last Admin: 08/12/21 00:17 Dose: 250 mls/hr Documented by: Remdesivir 200 mg/ Sodium (Chloride) 250 mls @ 250 mls/hr IV ONETIME ONE Stop: 08/12/21 01:37 Last Admin: 08/12/21 02:03 Dose: 250 mls/hr Documented by: Tocilizumab 800 mg/ Sodium (Chloride) 140 mls @ 140 mls/hr IV ONETIME ONE Stop: 08/12/21 10:59 Last Admin: 08/12/21 11:10 Dose: 140 mls/hr Documented by: Sterile Water (Sterile Water For Injection) Confirm Administered Dose 20 mls @ as directed .ROUTE .STK-MED ONE Stop: 08/12/21 19:37 Last Admin: 08/13/21 02:49 Dose: Not Given Documented by: Iopamidol (Iopamidol 755 Mg/Ml 100 Ml Bottle) 100 ml IVPUSH ONETIME ONE Stop: 08/11/21 21:58 Last Admin: 08/11/21 22:38 Dose: 94 ml Documented by: - Exam Quality Assessment: Supplemental Oxygen General: Alert, Oriented HEENT: Pupils Equal Neck: Supple Lungs: Decreased Breath Sounds (severe) GI/Abdominal Exam: Normal Bowel Sounds, Soft Back Exam: Normal Inspection Extremities: Normal Inspection, Normal Range of Motion Peripheral Pulses: 2+: Radial (L), Radial (R) Skin: Warm, Dry Neurological: No New Focal Deficit Psy/Mental Status: Alert - Patient Data Lab Results Last 24 hrs: Laboratory Results - last 24 hr 08/12/21 08/12/21 08/12/21 Range/Units 06:10 08:15 12:21 Sodium 130 L (136-145) mmol/L Potassium 4.6 (3.5-5.1) mmol/L Chloride 96 L (98-107) mmol/L Carbon Dioxide 22 (21-32) mmol/L Anion Gap 16.6 H (7-13) mEq/L BUN 21 H (7-18) mg/dL Creatinine 1.12 (0.70-1.30) mg/dL Est Cr Clr Drug Dosing 75.06 mL/min Estimated GFR (MDRD) > 60 BUN/Creatinine Ratio 18.8 (No establ ref range) Glucose 238 H (70-99) mg/dL POC Glucose 222 H 213 H (70-99) mg/dL Calcium 8.5 (8.5-10.1) mg/dL Total Bilirubin 0.7 (0.2-1.0) mg/dL AST 86 H (15-37) U/L ALT 117 H (16-63) U/L Alkaline Phosphatase 42 L (46-116) U/L Total Protein 7.7 (6.4-8.2) g/dL Albumin 2.5 L (3.4-5.0) g/dL Globulin 5.2 Albumin/Globulin Ratio 0.48 08/12/21 08/12/21 Range/Units 16:32 20:33 Sodium (136-145) mmol/L Potassium (3.5-5.1) mmol/L Chloride (98-107) mmol/L Carbon Dioxide (21-32) mmol/L Anion Gap (7-13) mEq/L BUN (7-18) mg/dL Creatinine (0.70-1.30) mg/dL Est Cr Clr Drug Dosing mL/min Estimated GFR (MDRD) BUN/Creatinine Ratio (No establ ref range) Glucose (70-99) mg/dL POC Glucose 253 H 221 H (70-99) mg/dL Calcium (8.5-10.1) mg/dL Total Bilirubin (0.2-1.0) mg/dL AST (15-37) U/L ALT (16-63) U/L Alkaline Phosphatase (46-116) U/L Total Protein (6.4-8.2) g/dL Albumin (3.4-5.0) g/dL Globulin Albumin/Globulin Ratio Result Diagrams: 08/13/21 06:20 08/12/21 06:10 [place] Results Last 24 hrs: Microbiology 08/11/21 20:50 Aerobic Blood Culture - Preliminary Blood - Arm, Right NO GROWTH AFTER 1 DAY Anaerobic Blood Culture - Preliminary NO GROWTH AFTER 1 DAY 08/11/21 20:45 Aerobic Blood Culture - Preliminary Blood - Arm, Left NO GROWTH AFTER 1 DAY Anaerobic Blood Culture - Preliminary NO GROWTH AFTER 1 DAY Sepsis Event Note - Evaluation Sepsis Screening Result: Possible Sepsis Risk - Focused Exam Vital Signs: Vital Signs Temp Pulse Resp BP BP BP Pulse Ox 08/12/21 23:55 98 F 56 L 20 97/48 L 87 L 08/12/21 22:27 108/53 L 08/12/21 20:00 97.2 F 52 L 18 94/27 L 90 L - Problem List & Annotations (1) Acute respiratory failure with hypoxia SNOMED Code(s): 97086584, 229393257 Code(s): J96.01 - ACUTE RESPIRATORY FAILURE WITH HYPOXIA Status: Acute Current Visit: Yes (2) Diabetes SNOMED Code(s): 70393670 Code(s): E11.9 - TYPE 2 DIABETES MELLITUS WITHOUT COMPLICATIONS Status: Acute Current Visit: Yes (3) Community acquired pneumonia SNOMED Code(s): 962685293 Code(s): J18.9 - PNEUMONIA, UNSPECIFIED ORGANISM Status: Acute Current Visit: No (4) Hyperglycemia SNOMED Code(s): 63396919 Code(s): R73.9 - HYPERGLYCEMIA, UNSPECIFIED Status: Acute Current Visit: No (5) Pneumonia due to COVID-19 virus SNOMED Code(s): 602296084088168826 Code(s): U07.1 - COVID-19; J12.82 - PNEUMONIA DUE TO CORONAVIRUS DISEASE 2019 Status: Acute Current Visit: No - Problem List Review Problem List Initiated/Reviewed/Updated: Yes - My Orders Last 24 Hours: My Active Orders 08/12/21 06:00 Piperacillin/Tazobactam [Zosyn] 4.5 gm Sodium Chloride 0.9% [Normal Saline AdvBag] 100 ml IV Q6HR 08/12/21 06:10 PROCALCITONIN [REF] Routine 08/12/21 Breakfast Carbohydrate Counting [Consistent Carbohydrate Diet] [DIET] 08/12/21 08:00 Insulin Lispro [HumaLOG] See Protocol SUBCUT WITHMEALSANDBED 08/12/21 09:00 Aspirin [Halfprin] 81 mg PO DAILY Clopidogrel [Plavix] 75 mg PO DAILY Enoxaparin [Lovenox] 40 mg SUBCUT DAILY Losartan [Cozaar] 50 mg PO BID Metoprolol Succinate [Toprol XL] 50 mg PO DAILY Pantoprazole [ProTONIX] 40 mg PO DAILY Simvastatin [Zocor] 40 mg PO DAILY dexAMETHasone 6 mg PO DAILY 08/12/21 09:28 Code Status [Resuscitation Status] Routine 08/12/21 12:21 Pulse Oximetry Continuous Monitoring [OM.PC] Routine 08/12/21 12:22 Telemetry Monitoring [Cardiac Monitoring] [RC] . DIRECTED 08/12/21 23:57 Sodium Chloride 0.9% [Saline Flush] 10 ml FLUSH ASDIRECTED PRN 08/13/21 01:00 Remdesivir 100 mg Sodium Chloride 0.9% [Normal Saline AdvBag] 100 ml IV Q24H 08/13/21 05:00 CBC WITH AUTO DIFF [HEME] DAILY HEPATIC FUNCTION PANEL,HFP [CHEM] DAILY - Plan Plan:: 61-year-old male with a history of CAD, type 2 diabetes, hypertension, obesity who presented with generalized weakness was found to be significantly hypoxic with oxygen saturations in the 70s on room air. COVID-19 testing was positive and chest x-ray and CT revealed bilateral infiltrates concerning for COVID-19 pneumonia. # Acute hypoxic respiratory failure secondary to COVID-19 pneumonia -Worsening oxygen saturations with oxygen saturations in the low 80s on 100% FiO2 high flow nasal cannula. Obtained ABG which showed pH 7.38, PCO2 39, PaO2 54, bicarb 23. PA FiO2 ratio 58 severe ARDS -Given his worsening oxygen saturations. Decision was made to intubate patient. ADDRESS CHANGE CLERK was called patient was prepped and intubated. Discussion was had with physician at outside facility critical care at [facility] and patient will be transferred for further management. We will adjust ventilator settings as required. Propofol and norepinephrine drip ordered as needed. -Dexamethasone p.o. 6 mg for 10-day course, remdesivir per protocol - addition of Tocilizumab 8 mg/kg once given addition of HFNC support -Frequent laboratory monitoring per protocol -continue Zosyn for possible secondary bacterial infection, blood cultures in process # Left lower abdominal pain -No concerning findings on physical exam - patient describes mild abdominal pain stable to improving over last several days - no change in BM, melena or diarrhea - significantly improved today # Chronic medical problems: # CADcontinue Plavix, aspirin, metoprolol succinate, simvastatin # Hypertensionasymptomatic hypotension hold losartan, amlodipine # Type 2 diabetes mellitushold Metformin, medium dose sliding-scale insulin Fluidsnone Electrolyteswithin normal limits Dietcarb controlled diet DVT prophylaxisBID Lovenox GI prophylaxis-PPI Dispopatient now intubated will transfer to critical care in [place]
[2021-08-13 07:43] LABS: ALLEN TEST POSITIVE; BASE EXCESS ARTERIAL -1 mmol/L ((-2)-(+3)); O2 DELIVERY DEVICE HI FLOW NASAL CANNU; O2 SATURATION ARTERIAL 88 % (95-100); PCO2 ARTERIAL 39 mmHg (35-45); PO2 ARTERIAL 54 mmHg (70-100)
[2021-08-13] MEDS ORDERED: Norepinephrine 4 MG in Dextrose 5% in Water 246 ML IV SCH ×2 (08:15)
[2021-08-13] MEDS ORDERED: propofoL 100 ML IV SCH (08:45)
[2021-08-13 08:46] VITALS: BP 116/59; PULSE 58
[2021-08-13] MEDS ORDERED: Succinylcholine 200 MG/10 ML MDV IV ONE (08:50)
[2021-08-13] MEDS ORDERED: Rocuronium 100 MG/10 ML MDV IV ONE (08:50)
[2021-08-13] MEDS ORDERED: Etomidate 2 MG/ML 20 ML SDV IVPUSH ONE (08:50)
--- NOTE | 2021-08-13 09:11 | PCM.DCSUM1 ---
Discharge Summary - Hospital Course Free Text/Narrative:: Patient is a 61-year-old male with a past medical history of type 2 diabetes mellitus, hypertension, CAD status post cardiac stents in 2000 who presented with dyspnea and fatigue. In the emergency department patient had oxyegn saturations in the upper 70s on room air. He was quickly transitioned to nasal cannula and to high flow nasal cannula with improvement in his oxygen saturations. Laboratory studies included a sodium of 130, potassium 4.8, creatinine 1.27, white count of 5.4, hemoglobin 15.2, platelet count 213, AST 114, ALT 132, CRP 16.3, lactate 1.8, D-dimer 1120, troponin was normal. Chest x-ray showed bilateral infiltrates. COVID-19 test was positive. CTA was obtained which showed no evidence of pulmonary embolism but did show concerning findings for bilateral diffuse infiltrates concerning for COVID-19 pneumonia. Upon my discussion with patient states that he has been feeling more short of breath and fatigue for the last 10 days. States that it is slowly worsened to the point where he was incredibly fatigued and was unable to do much of any activity without feeling short of breath. States he had noticed some fevers and chills. States he had noticed some mild left lower quadrant abdominal discomfort but states this is mild and has been slightly improving her last several days. Had a prolonged discussion with patient given the severity of his COVID-19 pneumonia diagnosis. Patient agreed to treatment with remdesivir and steroids. He stated that he would not want to be on a ventilator and he would not want to be "kept alive with any machines ". Patient stated that she talk to his son if he has any worsening confusion and is unable to make decisions. Patient was admitted for further evaluation. Patient was given remdesivir, dexamethasone and a dose of Tocilizumab per protocol. Patient had worsening in his oxygen saturations and required high flow nasal cannula on hospital day 1. Patient continued worsening in his oxygen saturations requiring 100% FiO2 to maintain oxygen saturations. Despite 100% FiO2 patient to decrease ox saturations into the low 80s. ABG was obtained which showed pH of 7.38, PCO2 39, PaO2 of 54, bicarb of 23 for a PA FiO2 ratio 58 concerning for severe radius. Discussion was had with patient at length and patient maintained full CODE STATUS and agreed to intubation. [employer] was contacted and patient was prepped and was intubated. Patient was accepted for transfer at [facility] in [facility]. Arrangements for transport via air were made. Patient was stable upon discharge. Ventilator settings on discharge included a respiratory rate of 16, tidal volume of 400, PEEP of 14, FiO2 of 100%. - Discharge Data Discharge Date: 08/13/21 Discharge Disposition: DC/Tfer to Acute Hospital 02 Condition: Stable - Referral to Home Health Primary Care Physician: PCP None - Discharge Diagnosis/Problem(s) (1) Acute respiratory failure with hypoxia SNOMED Code(s): 76452665, 865667005 ICD Code: J96.01 - ACUTE RESPIRATORY FAILURE WITH HYPOXIA Status: Acute Current Visit: Yes (2) Diabetes SNOMED Code(s): 36767027 ICD Code: E11.9 - TYPE 2 DIABETES MELLITUS WITHOUT COMPLICATIONS Status: Acute Current Visit: Yes (3) Community acquired pneumonia SNOMED Code(s): 834541564 ICD Code: J18.9 - PNEUMONIA, UNSPECIFIED ORGANISM Status: Acute Current Visit: No (4) Hyperglycemia SNOMED Code(s): 71081900 ICD Code: R73.9 - HYPERGLYCEMIA, UNSPECIFIED Status: Acute Current Visit: No (5) Pneumonia due to COVID-19 virus SNOMED Code(s): 569102048172171881 ICD Code: U07.1 - COVID-19; J12.82 - PNEUMONIA DUE TO CORONAVIRUS DISEASE 2019 Status: Acute Current Visit: No - Patient Instructions Diet: NPO - Discharge Plan *PRESCRIPTION DRUG MONITORING PROGRAM REVIEWED*: No *COPY OF PRESCRIPTION DRUG MONITORING REPORT IN PATIENT OSVALDO: No Home Medications: Home Meds Nitroglycerin [Nitrostat] 1 tab .ROUTE ASDIRECTED PRN 09/28/13 [History] Aspirin [Aspirin EC] 81 mg PO DAILY 10/09/14 [History] Clopidogrel Bisulfate [Clopidogrel] 75 mg PO DAILY 10/09/14 [History] Pantoprazole [ProTONIX] 40 mg PO DAILY 10/09/14 [History] Simvastatin [Zocor] 40 mg PO DAILY 10/09/14 [History] amLODIPine Besylate [Amlodipine Besylate] 10 mg PO DAILY 10/09/14 [History] metFORMIN [Glucophage] 500 mg PO BID 10/09/14 [History] Losartan Potassium 50 mg PO BID 01/07/16 [History] Metoprolol Succinate 50 mg PO DAILY 01/07/16 [History] Oxygen Therapy Mode: Mechanical Ventilation FiO2: 100 Forms: ED Department Discharge Referrals: PCP,None [Primary Care Provider] - - Discharge Summary/Plan Comment DC Time >30 min.: Yes Total # of Minutes for Discharge Time: one hour - Patient Data Vitals - Most Recent: Last Vital Signs Temp 97.0 F 08/13/21 08:45 Pulse 58 L 08/13/21 08:45 Resp 20 08/13/21 08:45 BP 116/59 L 08/13/21 08:45 Pulse Ox 85 L 08/13/21 08:45 Weight - Most Recent: 312 lb 9.6 oz I&O - Last 24 hours: Intake & Output 08/12/21 08/13/21 08/13/21 22:59 06:59 14:59 Intake Total 740 200 Balance 740 200 Lab Results - Last 24 hrs: Laboratory Results - last 24 hr 08/12/21 08/12/21 08/12/21 Range/Units 06:10 12:21 16:32 WBC (5.0-10.0) 10^3/uL RBC (4.6-6.2) 10^6/uL Hgb (14.0-18.0) g/dL Hct (40.0-54.0) % MCV (80-100) fL MCH (27.0-34.0) pg MCHC (33.0-35.0) g/dL Plt Count (150-450) 10^3/uL Neut % (Auto) (42.2-75.2) % Lymph % (Auto) (20.5-50.1) % [place] % (Auto) (2-8) % Eos % (Auto) (1.0-3.0) % Baso % (Auto) (0.0-1.0) % ABG pH (7.35-7.45) ABG pCO2 (35-45) mmHg ABG pO2 (70-100) mmHg ABG HCO3 (22-26) mmol/L ABG O2 Saturation (95-100) % ABG Base Excess ((-2)-(+3)) mmol/L Toro Test O2 Delivery Device POC Glucose 213 H 253 H (70-99) mg/dL Total Bilirubin (0.2-1.0) mg/dL Direct Bilirubin (0.0-0.2) mg/dL Indirect Bilirubin AST (15-37) U/L ALT (16-63) U/L Alkaline Phosphatase (46-116) U/L Total Protein (6.4-8.2) g/dL Albumin (3.4-5.0) g/dL Globulin Albumin/Globulin Ratio Procalcitonin 0.13 H ng/mL 08/12/21 08/13/21 08/13/21 Range/Units 20:33 06:20 06:20 WBC 4.2 L (5.0-10.0) 10^3/uL RBC 5.00 (4.6-6.2) 10^6/uL Hgb 14.5 (14.0-18.0) g/dL Hct 43.7 (40.0-54.0) % MCV 87.4 (80-100) fL MCH 29.0 (27.0-34.0) pg MCHC 33.2 (33.0-35.0) g/dL Plt Count 275 (150-450) 10^3/uL Neut % (Auto) 77.9 H (42.2-75.2) % Lymph % (Auto) 14.4 L (20.5-50.1) % [place] % (Auto) 7.7 (2-8) % Eos % (Auto) 0.0 L (1.0-3.0) % Baso % (Auto) 0.0 (0.0-1.0) % ABG pH (7.35-7.45) ABG pCO2 (35-45) mmHg ABG pO2 (70-100) mmHg ABG HCO3 (22-26) mmol/L ABG O2 Saturation (95-100) % ABG Base Excess ((-2)-(+3)) mmol/L Toro Test O2 Delivery Device POC Glucose 221 H (70-99) mg/dL Total Bilirubin 0.6 (0.2-1.0) mg/dL Direct Bilirubin 0.3 H (0.0-0.2) mg/dL Indirect Bilirubin 0.3 AST 53 H (15-37) U/L ALT 90 H (16-63) U/L Alkaline Phosphatase 38 L (46-116) U/L Total Protein 7.4 (6.4-8.2) g/dL Albumin 2.4 L (3.4-5.0) g/dL Globulin 5.0 Albumin/Globulin Ratio 0.48 Procalcitonin ng/mL 08/13/21 Range/Units 07:28 WBC (5.0-10.0) 10^3/uL RBC (4.6-6.2) 10^6/uL Hgb (14.0-18.0) g/dL Hct (40.0-54.0) % MCV (80-100) fL MCH (27.0-34.0) pg MCHC (33.0-35.0) g/dL Plt Count (150-450) 10^3/uL Neut % (Auto) (42.2-75.2) % Lymph % (Auto) (20.5-50.1) % [place] % (Auto) (2-8) % Eos % (Auto) (1.0-3.0) % Baso % (Auto) (0.0-1.0) % ABG pH 7.38 (7.35-7.45) ABG pCO2 39 (35-45) mmHg ABG pO2 54 L (70-100) mmHg ABG HCO3 23.0 (22-26) mmol/L ABG O2 Saturation 88 L (95-100) % ABG Base Excess -1 ((-2)-(+3)) mmol/L Toro Test Positive O2 Delivery Device Hi flow nasal cannu POC Glucose (70-99) mg/dL Total Bilirubin (0.2-1.0) mg/dL Direct Bilirubin (0.0-0.2) mg/dL Indirect Bilirubin AST (15-37) U/L ALT (16-63) U/L Alkaline Phosphatase (46-116) U/L Total Protein (6.4-8.2) g/dL Albumin (3.4-5.0) g/dL Globulin Albumin/Globulin Ratio Procalcitonin ng/mL ANIKA Results - Last 24 hrs: Microbiology 08/11/21 20:50 Aerobic Blood Culture - Preliminary Blood - Arm, Right NO GROWTH AFTER 1 DAY Anaerobic Blood Culture - Preliminary NO GROWTH AFTER 1 DAY 08/11/21 20:45 Aerobic Blood Culture - Preliminary Blood - Arm, Left NO GROWTH AFTER 1 DAY Anaerobic Blood Culture - Preliminary NO GROWTH AFTER 1 DAY Med Orders - Current: Current Medications Acetaminophen (Acetaminophen 325 Mg Tab) 650 mg PO Q4H PRN PRN Reason: Pain (Mild 1-3)/fever Aspirin (Aspirin 81 Mg Tab.Ec) 81 mg PO DAILY [facility] Last Admin: 08/12/21 08:36 Dose: 81 mg Documented by: Clopidogrel Bisulfate (Clopidogrel 75 Mg Tab) 75 mg PO DAILY [facility] Last Admin: 08/12/21 08:38 Dose: 75 mg Documented by: Dexamethasone (Dexamethasone 6 Mg Tablet) 6 mg PO DAILY [facility] Stop: 08/21/21 09:01 Last Admin: 08/12/21 08:35 Dose: 6 mg Documented by: Dextrose/Water (50% Dextrose In Water 50 Ml Syringe) 50 ml IVPUSH Q15M PRN PRN Reason: Hypoglycemia Enoxaparin Sodium (Enoxaparin 40 Mg/0.4 Ml Syringe) 40 mg SUBCUT DAILY [facility] Last Admin: 08/12/21 08:38 Dose: 40 mg Documented by: Glucagon (Glucagon,Human Recombinant 1 Mg Vial) 1 mg IM Q15M PRN PRN Reason: Hypoglycemia Remdesivir 100 mg/ Sodium (Chloride) 100 mls @ 100 mls/hr IV Q24H [facility] Stop: 08/16/21 01:59 Last Infusion: 08/13/21 02:42 Dose: Infused Documented by: Piperacillin Sod/Tazobactam (Sod 4.5 gm/ Sodium Chloride) 100 mls @ 200 mls/hr IV Q6HR [facility] Last Admin: 08/13/21 05:56 Dose: 200 mls/hr Documented by: Norepinephrine Bitartrate 4 mg (/ Dextrose/Water) 250 mls @ 0.15 mls/hr IV TITRATE [facility]; Protocol Propofol (Diprivan 100 Ml) 100 mls @ 17.015 mls/hr IV .TITRATE [facility]; Protocol Insulin Human Lispro (Insulin Lispro 100 Units/Ml 3 Ml Vial) 0 unit SUBCUT WITHMEALSANDBED [facility]; Protocol Last Admin: 08/12/21 22:27 Dose: 4 units Documented by: Metoprolol Succinate (Metoprolol Succinate 25 Mg Tab.Er) 50 mg PO DAILY [facility] Last Admin: 08/12/21 08:37 Dose: 50 mg Documented by: Ondansetron HCl (Ondansetron 4 Mg/2 Ml Sdv) 4 mg IVPUSH Q4H PRN PRN Reason: Nausea/Vomiting Pantoprazole Sodium (Pantoprazole 40 Mg Tab.Cr) 40 mg PO DAILY [facility] Last Admin: 08/12/21 08:37 Dose: 40 mg Documented by: Simvastatin (Simvastatin 40 Mg Tab) 40 mg PO DAILY [facility] Last Admin: 08/12/21 08:36 Dose: 40 mg Documented by: Sodium Chloride (Sodium Chloride 0.9% 10 Ml Syringe) 10 ml FLUSH ASDIRECTED PRN PRN Reason: IV Use Last Admin: 08/13/21 05:56 Dose: 10 ml Documented by: Discontinued Medications Amlodipine Besylate (Amlodipine 5 Mg Tab) 10 mg PO DAILY [facility] Last Admin: 08/12/21 08:35 Dose: 10 mg Documented by: Dexamethasone (Dexamethasone 4 Mg/Ml Sdv) 6 mg IVPUSH ONETIME ONE Stop: 08/11/21 21:34 Last Admin: 08/11/21 21:41 Dose: 6 mg Documented by: Azithromycin 500 mg/ Sodium (Chloride) 250 mls @ 250 mls/hr IV ONETIME ONE Stop: 08/12/21 00:20 Last Admin: 08/12/21 00:17 Dose: 250 mls/hr Documented by: Remdesivir 200 mg/ Sodium (Chloride) 250 mls @ 250 mls/hr IV ONETIME ONE Stop: 08/12/21 01:37 Last Admin: 08/12/21 02:03 Dose: 250 mls/hr Documented by: Tocilizumab 800 mg/ Sodium (Chloride) 140 mls @ 140 mls/hr IV ONETIME ONE Stop: 08/12/21 10:59 Last Admin: 08/12/21 11:10 Dose: 140 mls/hr Documented by: Sterile Water (Sterile Water For Injection) Confirm Administered Dose 20 mls @ as directed .ROUTE .STK-MED ONE Stop: 08/12/21 19:37 Last Admin: 08/13/21 02:49 Dose: Not Given Documented by: Iopamidol (Iopamidol 755 Mg/Ml 100 Ml Bottle) 100 ml IVPUSH ONETIME ONE Stop: 08/11/21 21:58 Last Admin: 08/11/21 22:38 Dose: 94 ml Documented by: Losartan Potassium (Losartan 25 Mg Tab) 50 mg PO BID [facility] Last Admin: 08/12/21 22:27 Dose: 50 mg Documented by:
[2021-08-13] MEDS ORDERED: Midazolam 1 MG/ML 2 ML SDV IVPUSH ONE (09:40)
--- NOTE | 2021-08-13 09:40 | CR ---
PROCEDURE INFORMATION: Exam: XR Chest Exam date and time: 08/13/2021 9:03 AM Age: 61 years old Clinical indication: Device placement; Ett placement (vent status); Additional info: Intabation TECHNIQUE: Imaging protocol: XR of the chest. Views: 1 view. COMPARISON: CT Chest w Cont, Chest w Cont 08/11/2021 10:10 PM FINDINGS: Tubes, catheters and devices: The tip of an endotracheal tube is approximately 2.2 cm above the jemma. There is an OG/NG tube which passes down the esophagus and terminates below the diaphragm. The tip of the tube is not included in the [id number]. Lungs: Severe ground-glass airspace disease throughout the lung aleman bilaterally appears worse since prior chest CT. The lung volumes are decreased with vascular crowding secondary to elevation of the diaphragms which is likely on the basis of poor inspiratory effort. Pleural spaces: Unremarkable. No pleural effusion. No pneumothorax. Heart/Mediastinum: Unremarkable. No cardiomegaly. Bones/joints: Unremarkable. IMPRESSION: Severe ground-glass airspace disease throughout the lung aleman bilaterally appears worse since prior chest CT.
[2021-08-13 10:20] LABS: O2 DELIVERY DEVICE RESUSCITATION BAG; O2 SATURATION ARTERIAL 94 % (95-100); PCO2 ARTERIAL 57 mmHg (35-45); PO2 ARTERIAL 79 mmHg (70-100)
[2021-08-13 10:21] LABS: ALLEN TEST POSITIVE; BASE EXCESS ARTERIAL -3 mmol/L ((-2)-(+3)); BICARBONATE,ARTERIAL 24.7 mmol/L (22-26)
== END 2021-08-13 10:55 | DRG 208 ==
LOC: DL.ED 18:24 → DL.MS 08-12 00:27
PROVIDERS: ADMIT Internal Medicine; ATTEND Internal Medicine
PROC: XW033E5 Introduction of Remdesivir Anti-infective into Peripheral Vein, Percutaneous Approach, New Technology Group 5 (ICD-10-PCS; principal; 2021-08-12)
PROC: 8E0ZXY6 Isolation (ICD-10-PCS; principal; 2021-08-12)
PROC: 3E0333Z Introduction of Anti-inflammatory into Peripheral Vein, Percutaneous Approach (ICD-10-PCS; 2021-08-12)
PROC: XW033H5 Introduction of Tocilizumab into Peripheral Vein, Percutaneous Approach, New Technology Group 5 (ICD-10-PCS; 2021-08-12)
PROC: 5A0945A Assistance with Respiratory Ventilation, 24-96 Consecutive Hours, High Flow/Velocity Cannula (ICD-10-PCS; 2021-08-12)
PROC: 5A1935Z Respiratory Ventilation, Less than 24 Consecutive Hours (ICD-10-PCS; 2021-08-13)
PROC: 0BH17EZ Insertion of Endotracheal Airway into Trachea, Via Natural or Artificial Opening (ICD-10-PCS; 2021-08-13)
DX: U07.1 COVID-19 (principal); J12.82 Pneumonia due to coronavirus disease 2019; J96.01 Acute respiratory failure with hypoxia; Z68.41 Body mass index [BMI] 40.0-44.9, adult; I10 Essential (primary) hypertension; I25.10 Atherosclerotic heart disease of native coronary artery without angina pectoris; E11.65 Type 2 diabetes mellitus with hyperglycemia; E78.00 Pure hypercholesterolemia, unspecified; K21.9 Gastro-esophageal reflux disease without esophagitis; Z86.14 Personal history of Methicillin resistant Staphylococcus aureus infection; Z79.84 Long term (current) use of oral hypoglycemic drugs; Z95.5 Presence of coronary angioplasty implant and graft; I25.2 Old myocardial infarction; Z79.82 Long term (current) use of aspirin; Z79.899 Other long term (current) drug therapy; Z90.79 Acquired absence of other genital organ(s); R10.32 Left lower quadrant pain; R74.01 Elevation of levels of liver transaminase levels; E66.01 Morbid (severe) obesity due to excess calories
CPT/HCPCS: 0240U; 31500; 36415; 36600; 71045; 71260; 80053; 80076; 82803; 82947; 83605; 83735; 83880; 84145; 84484; 85025; 85379; 86140; 87040; 93005; 96374; 96375; 99285-25; A9270-GY; J0330; J0456; J1100; J1650; J1815-GY; J2250; J2543; J2704; J3490; J7050; J7060; J8540; M0249; Q0249; Q9967